=== PATIENT | male | born 1975 | race African-American/Black ===

== ENCOUNTER 2024-08-01 19:20 | Inpatient (IN) | payer OTHER, SELFPAY ==
[2024-08-01 20:43] VITALS: BMI 32.5
[2024-08-02] MEDS: Thiamine HCL 100 MG TABLET PO ×2 (00:05→09:26)
--- NOTE | 2024-08-02 04:17 | PC.ADMIT ---
Addendum entered by Christal Lee RN 08/02/24 05:42: According to the patient, he has not taken any home medications for at least two months. Original Note: River Ferraro is a 49 year old Pashto speaking male admitted to at 1940 on a CV and placed on 15 minute safety checks. Patient was initially seen in the [facility] ED after he admitted to people at an meeting his recent relapse on alcohol, crack and marijuana and suicidal thinking and attempts. Patient has a history of depression with substance use and suicide attempts, and patient reported to crisis that he has had three suicide attempts this last week, 1) attempt to overdose by shooting up crack, 2) taking Klonodone and 3) laying on the railroad tracks waiting for the train to come . Apparently he has been on a downward spiral since June 23, when he was 9 months of sobriety and relapsed while he was celebrating getting his new apartment. He also stole money from his job and left work. Patient is now worried about being without a job and being evicted from his apartment due to not paying [place] rent and allowing drug deals to happen at his residence. Patient was very pleasant and cooperative with his admission process, signed ANA, answered questions related to his history. He will need to do his safety tool, sign his belongings sheet and treatment plan. Patient rated both his depression and anxiety 10/10, he denied any alcohol withdrawals at the time of his admission. Patient denied any current SI, HI, VH. He did mention I hear mumbling but no voices . River said he feels safe on the unit and will alert staff if he is having active SI. HIs skin check was unremarkable, patient is a smoker but not interested in quitting. He did agree to see an addiction consult.
[2024-08-02 08:00] VITALS: BP 155/82; PULSE 71; RESP 18; TEMP 36.9; O2SAT 97
[2024-08-02 08:26] LABS: Estimated Average Glucose 140 mg/dL; Hemoglobin A1c % 6.5 % (<6.0)
[2024-08-02 08:36] LABS: Alanine Aminotransferase 11 U/L (0-40); Albumin Level 4.1 g/dL (3.5-5.0); Alkaline Phosphatase 68 U/L (39-117); Anion Gap 11 (12-20); Aspartate Amino Transferase 18 U/L (5-37); Bilirubin Total 0.2 mg/dL (0.0-1.0); Blood Urea Nitrogen 11 mg/dL (9-16); Calcium 9.3 mg/dL (8.4-10.2); Carbon Dioxide 30 mmol/L (22-29); Chloride 103 mmol/L (96-108); Cholesterol 167 mg/dL (<200); Creatinine Clr Calc Pharmacy 183.4; Estimated Glomerular Filt Rate > 60; Glucose Random 227 mg/dL (60-115); HDL Cholesterol 43 mg/dL (>40); LDL Cholesterol Calculated 106 mg/dL (<100); Sodium 140 mmol/L (135-145); Total Protein 7.2 g/dL (6.5-8.0); Triglycerides 90 mg/dL (<150)
[2024-08-02 08:50] LABS: Thyroid Stimulating Hormone 3.23 uIU/mL (0.32-4.0)
[2024-08-02] MEDS: LORazepam 1 MG TABLET 2 MG PO (09:25)
--- NOTE | 2024-08-02 09:58 | HO.PSYADMNOT ---
HPI Date of Service: 08/02/24 Chief Complaint: PTSD, Generalized anxiety disorder Sources of Information: patient interviewed, chart reviewed and crisis/core team assessment reviewed HPI Subjective Notes: [place] Warning and Conditional Voluntary Narrative: 49 yo male, transfer from [facility] for treatment of polysubstance use, depression, SI, homelessness. Reports he was working and had an apartment, however, his apartment was taken over at [employer], becoming a hub for substance distribution and crime. His landlord learned of this and is in process of eviction. As a result pt has attempted suicide three times this week by OD of crack, clonidine and lying on the train tracks waiting to be hit by an oncoming train. Reports decline for approximately 5 weeks. Has had 9 months of sobriety until June 2024. Recently resumed alcohol. AA peers took pt for help prior to admit. Today, detox is rough, pt hearing voices-using olanzapine, lorazepam. Brief meeting as he is sedate and wanting to rest Past Psychiatric History: IP: Affirms OP: none at this time SA: Several via OD Trials: Affirms Medical Evaluation Reviewed: Yes [facility] Medical History (Updated 08/02/24 @ 16:56 by Genny Louise, COMPLIANCE ASSISTANT) Polysubstance use disorder Alcohol use disorder Recurrent major depression PTSD (post-traumatic stress disorder) Narrative: Diabetes Social History: 18 yo daughter is a support Hx of incarcerations. 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 Substance History: cannabis, crack, cocaine,alcohol, prescription medication abuse Trauma History: affirms Diagnostics Vital Signs (24Hr): Vital Signs - 24 hr 08/02/24 08:00 Temperature 98.5 F Pulse Rate 71 Respiratory Rate 18 Blood Pressure 155/82 H Pulse Oximetry 97 Oxygen Delivery Method Room Air BMI result Body Mass Index 32.5 Labs 08/02/24 07:58 Labs: Laboratory Results - last 48 hr 08/02/24 07:58 Sodium 140 Potassium 4.0 Chloride 103 Carbon Dioxide 30 H Anion Gap 11 L BUN 11 Creatinine 0.70 Estim Creat Clear Calc 183.4 Estimated GFR > 60 Random Glucose 227 H Estimat Average Glucose 140 Hemoglobin A1c % 6.5 H Calcium 9.3 Total Bilirubin 0.2 AST 18 ALT 11 Alkaline Phosphatase 68 Total Protein 7.2 Albumin 4.1 Triglycerides 90 Cholesterol 167 LDL Cholesterol, Calc 106 H HDL Cholesterol 43 TSH 3.23 WBC 11.4 Mg. 1.5 Tox + cocaine, + cannabis BAL 31 EKG EKG Comment: NSR QTC 450 Meds/Allergies Allergies Allergies Allergy/AdvReac Type Severity Reaction Status Date / Time fish derived [fish] Allergy Difficulty Verified 08/01/24 20:58 Breathing gabapentin Allergy Difficulty Verified 08/01/24 20:58 Breathing shellfish derived [shellfish] Allergy Difficulty Verified 08/01/24 20:58 Breathing Mental Status Exam Mental Status Exam Patient Appearance: Fatigued Patient Orientation: Person, Place and Situation Level of Consciousness: Drowsy and Sedated Patient Behavior: Asleep, Sedated, Avoidant and Poor Eye Contact Mood Description: Withdrawn Affect Description: Withdrawn Patient Cognition Impaired: No Ability to Follow Directions: Fair Speech Pattern: Impoverished and Spontaneous Speech Memory Description: Remote Impaired Hallucinations: Auditory Delusions: Not Present Thought Process: Rumination Depressive Symptoms: Thoughts of /Suicide and Difficulty Concentrating Judgement: Poor Assessment & Plan Assessment & Plan (1) PTSD (post-traumatic stress disorder): Status: Acute Code(s): F43.10 - Post-traumatic stress disorder, unspecified (2) Recurrent major depression: Status: Acute Code(s): F33.9 - Major depressive disorder, recurrent, unspecified (3) Alcohol use disorder: Status: Acute Code(s): F10.90 - Alcohol use, unspecified, uncomplicated (4) Polysubstance use disorder: Status: Acute Code(s): F19.90 - Other psychoactive substance use, unspecified, uncomplicated Plan Admit, CV, 15 minute checks Diagnostics as needed Collateral Contacts Olanzapine prn Lorazepam detox Encourage milieu involvement as detox progresses Discharge planning Patient educated on: therapeutic strategies Reason for continued inpatient stay Substantial Risk for: rapid decompensation Statement Statement: I have reviewed the history and physical and performed a pertinent examination on my patient. No changes have occurred unless specified. If the History and Physical was not performed prior to admission, the Hospitalist's service will be consulted for completing the admission physical. Time Spent With Patient Time: Total time managing care of this patient today ____ minutes.
--- NOTE | 2024-08-02 11:28 | HO.PM.IMCN ---
History of Present Illness Data of Consult Service Date: 08/02/24 Primary Care Provider: VIOLET Lance HPI Reason for consult: Medical H and P 49-year-old male with a past medical history of type 2 diabetes, PTSD, depression and anxiety, presented to [facility] with suicidal ideation, patient has a history of several overdose attempts. On exam patient is guarded, asked this commercial underwriter if I am ?going to hurt him . Reassured patient that I was here to discuss his medical history inpatient is cooperative and agreeable with exam. He reports that he has type 2 diabetes, his recent A1c is 6.5. He takes Ozempic at home as well as metformin. He denies any other health conditions. His cholesterol is within acceptable range, TSH within normal limits no other concerns noted. He denies any shortness of breath, chest pain, headaches, dizziness, lightheadedness or any other concerning symptoms at this time. Does report that he on occasion he becomes dizzy and has headaches. His blood pressure is elevated. We will continue to monitor this, he denies a history of hypertension. Review of Systems Review of Systems: Denies any shortness of breath, chest pain, dizziness, lightheadedness, abdominal pain or discomfort, nausea vomiting or diarrhea PMFSH Social History Household Members: None Housing: Apartment Do you presently have visiting nurse or other home services: No Patient Tobacco Use Status: Current everyday Tobacco user Tobacco use type: Cigarette Cigarette Packs Per Day: 0.5 Cigarettes Per Day: 10.0 Years Smoked: 33 Smoked in Last 30 Days: Yes e-Cigarette/Vaping Use: Currently Using Frequency of e-Cigarette/Vaping Use: 3 x week Patient Given Instructions on How to Stop Smoking: Yes Date Education Initiated: 08/01/24 Second Hand Smoke Exposure: Yes Currently Displaying Signs/Symptoms of Drug Intoxication Withdrawal: No Have you been hit, kicked, punched, or otherwise hurt by someone within the past year? If so, by whom?: No Do you feel safe in your current relationship?: No Current Relationship Is there a partner from a previous relationship who is making you feel unsafe now?: No Are you made to feel afraid or neglected: No Spiritual Healthcare Practices: none Evangelical Healthcare Practices: none Cultural Healthcare Practices: none Advance Directives: No Advance Directives Information Provided: No Do you have thoughts of harming others: None Do you have a plan to hurt others: No Plan Recently lost weight without trying: Yes How much weight loss: 34pounds or more Eating poorly because of decreased appetite: Yes Nutrition screen score: 7 Nutrition Risks: No Nutritional Risk Poor oral hygiene: No Meds Allergies Allergy/AdvReac Type Severity Reaction Status Date / Time fish derived [fish] Allergy Difficulty Verified 08/01/24 20:58 Breathing gabapentin Allergy Difficulty Verified 08/01/24 20:58 Breathing shellfish derived [shellfish] Allergy Difficulty Verified 08/01/24 20:58 Breathing Active Medications: Current Medications Acetaminophen (Acetaminophen 325 Mg Tablet) 650 mg PO Q6H PRN PRN Reason: Headache/Pain, Scale 1-10 Al Hydroxide/Mg Hydroxide (Magnesium Hydrox/Alum Hydrox 30 Ml Oral.Susp) 30 ml PO Q6H PRN PRN Reason: Heartburn/Nausea Hydroxyzine HCl (Hydroxyzine Hcl 25 Mg Tablet) 25 mg PO Q6H PRN PRN Reason: mild anxiety Lorazepam (Lorazepam 1 Mg Tablet) 1 mg PO Q4H PRN PRN Reason: ciwa 7-12 Lorazepam (Lorazepam 1 Mg Tablet) 2 mg PO Q4H PRN PRN Reason: ciwa 13-16 Last Admin: 08/02/24 09:25 Dose: 2 mg Lorazepam (Lorazepam 1 Mg Tablet) 3 mg PO Q4H PRN PRN Reason: ciwa >17, call Magnesium Hydroxide (Milk Of Magnesia 30 Ml Oral.Susp) 30 ml PO DAILY PRN PRN Reason: Constipation Nicotine Polacrilex (Nicotine Polacrilex 2 Mg Gum) 2 mg BUCCAL Q2H PRN PRN Reason: Nicotine Cravings Thiamine HCl (Thiamine Hcl 100 Mg Tablet) 100 mg PO DAILY [facility] Last Admin: 08/02/24 09:26 Dose: 100 mg Trazodone HCl (Trazodone Hcl 50 Mg Tablet) 50 mg PO BEDTIME MRX1 PRN PRN Reason: Insomnia Physical Exam Vital Signs and Narrative: Vital Signs: Last Vital Signs Temp 98.5 F 08/02/24 08:00 Pulse 71 08/02/24 08:00 Resp 18 08/02/24 08:00 BP 155/82 H 08/02/24 08:00 Pulse Ox 97 08/02/24 08:00 O2 Del Method Room Air 08/02/24 08:00 BMI result Body Mass Index 32.5 Alert and oriented X3, able to give good history. Neuro: CN II-X11 intact, no deficits, visual acuity intact EYES: PERRLA, EOM intact ENT: Hearing intact, lips moist Cardiac: S1 S2 RRR, No ectopy Pulmonary: lungs clear to auscultation, No increased WOB. Abdominal: BS active in all 4 quadrants, no guarding or tenderness MSK: Strength 5/5 upper and lower extremities : Deferred Extremities: No edema in lower extremities Psych: mood stable, Quiet and cooperative. Guarded. Skin: Warm and dry, Intact Results Labs 08/02/24 07:58 Labs: Laboratory Results - last 24 hr 08/02/24 07:58 Anion Gap 11 L Estim Creat Clear Calc 183.4 Estimated GFR > 60 Random Glucose 227 H Estimat Average Glucose 140 Hemoglobin A1c % 6.5 H Calcium 9.3 Total Bilirubin 0.2 AST 18 ALT 11 Alkaline Phosphatase 68 Total Protein 7.2 Albumin 4.1 Triglycerides 90 Cholesterol 167 LDL Cholesterol, Calc 106 H HDL Cholesterol 43 TSH 3.23 Assessment and Plan (1) Non-insulin dependent type 2 diabetes mellitus: Status: Acute (2) HTN (hypertension): Qualifiers: Hypertension type: secondary to endocrine disorders Qualified Code(s): I15.2 - Hypertension secondary to endocrine disorders Status: Acute Plan PTSD/depression/anxiety/SI Treatment per psychiatric team Type 2 diabetes Patient reports that he previously took metformin as well as Ozempic. Has not had Ozempic for 2 months, we will resume as outpatient Recent A1c 6.5, random glucose elevated. Start metformin 500 mg extended release at supper Hypertension We will start lisinopril 2.5 mg daily Recheck labs in 1 week Follow blood pressures and adjust as needed Thank you for allowing me to participate in the care of this patient. Will follow as needed. Please reconsult of any acute complaints or issues arise
[2024-08-02] MEDS: OLANZapine ODT 10 MG TAB.RAPDIS TRANSLINGU (11:56)
[2024-08-02 11:59] LABS: Folate 8.4 ng/mL (> or = 4.0); Vitamin B12 418 pg/mL (200-900)
[2024-08-02] MEDS: LORazepam 1 MG TABLET 3 MG PO (12:02)
[2024-08-02 12:24] VITALS: BP 148/104; PULSE 82
[2024-08-02 17:29] VITALS: BP 129/77; PULSE 82; RESP 18; O2SAT 98
[2024-08-02 18:51] VITALS: BP 129/80
[2024-08-02] MEDS: metFORMIN HCl ER 500 MG TAB.ER.24H PO (18:51)
[2024-08-02] MEDS: lisinopriL 2.5 MG TABLET PO (18:51)
[2024-08-02 20:00] VITALS: BP 140/82; PULSE 88; TEMP 36.8; O2SAT 99
[2024-08-03 08:00] VITALS: BP 113/74; PULSE 73; RESP 16; TEMP 36.9; O2SAT 100
--- NOTE | 2024-08-03 09:47 | P.PNPSI_ITS ---
Subjective Subjective Date of Service: 08/03/24 Reason For Visit: PTSD, Generalized anxiety disorder Interim History: met with patient; discussed with team withdrawal continues; depressed and anxious; says AH intermittent, but only present when depressed, stressed or emotional; [facility] Mental Status Exam Mental Status Exam Patient Appearance: Fatigued Patient Orientation: Person, Place and Situation Level of Consciousness: Drowsy and Sedated Patient Behavior: Asleep, Sedated, Avoidant and Poor Eye Contact Mood Description: Withdrawn Affect Description: Withdrawn Patient Cognition Impaired: No Ability to Follow Directions: Fair Speech Pattern: Impoverished and Spontaneous Speech Memory Description: Remote Impaired Hallucinations: Auditory Delusions: Not Present Thought Process: Rumination Depressive Symptoms: Thoughts of /Suicide and Difficulty Concentrating Judgement and Insight: impaired Diagnostics Vital Signs (24Hr): Vital Signs - 24 hr 08/02/24 12:24 08/02/24 17:29 08/02/24 18:51 Temperature Pulse Rate 82 82 Respiratory Rate 18 Blood Pressure 148/104 H 129/77 129/80 Pulse Oximetry 98 Oxygen Delivery Method Room Air 08/02/24 20:00 08/03/24 08:00 Temperature 98.2 F 98.4 F Pulse Rate 88 73 Respiratory Rate 16 Blood Pressure 140/82 H 113/74 Pulse Oximetry 99 100 Oxygen Delivery Method Room Air Room Air BMI result Body Mass Index 32.5 Labs 08/02/24 07:58 Labs: Laboratory Results - last 48 hr 08/02/24 08/02/24 07:58 10:25 Sodium 140 Potassium 4.0 Chloride 103 Carbon Dioxide 30 H Anion Gap 11 L BUN 11 Creatinine 0.70 Estim Creat Clear Calc 183.4 Estimated GFR > 60 Random Glucose 227 H Estimat Average Glucose 140 Hemoglobin A1c % 6.5 H Calcium 9.3 Total Bilirubin 0.2 AST 18 ALT 11 Alkaline Phosphatase 68 Total Protein 7.2 Albumin 4.1 Triglycerides 90 Cholesterol 167 LDL Cholesterol, Calc 106 H HDL Cholesterol 43 Vitamin B12 418 Folate 8.4 TSH 3.23 Medications Medications Current Medications Acetaminophen (Acetaminophen 325 Mg Tablet) 650 mg PO Q6H PRN PRN Reason: Headache/Pain, Scale 1-10 Al Hydroxide/Mg Hydroxide (Magnesium Hydrox/Alum Hydrox 30 Ml Oral.Susp) 30 ml PO Q6H PRN PRN Reason: Heartburn/Nausea Folic Acid (Folic Acid 1 Mg Tablet) 1 mg PO DAILY [place] Hydroxyzine HCl (Hydroxyzine Hcl 25 Mg Tablet) 25 mg PO Q6H PRN PRN Reason: mild anxiety Lisinopril (Lisinopril 2.5 Mg Tablet) 2.5 mg PO DAILY [facility]; Protocol Last Admin: 08/02/24 18:51 Dose: 2.5 mg Lorazepam (Lorazepam 1 Mg Tablet) 1 mg PO Q4H PRN PRN Reason: ciwa 7-12 Lorazepam (Lorazepam 1 Mg Tablet) 2 mg PO Q4H PRN PRN Reason: ciwa 13-16 Last Admin: 08/02/24 09:25 Dose: 2 mg Lorazepam (Lorazepam 1 Mg Tablet) 3 mg PO Q4H PRN PRN Reason: ciwa >17, call Last Admin: 08/02/24 12:02 Dose: 3 mg Magnesium Hydroxide (Milk Of Magnesia 30 Ml Oral.Susp) 30 ml PO DAILY PRN PRN Reason: Constipation Metformin HCl (Metformin Hcl Er 500 Mg Tab.Er.24h) 500 mg PO DAILY@1800 [facility] Last Admin: 08/02/24 18:51 Dose: 500 mg Multivitamins/Vitamin C (Multivitamin Tablet) 1 tab PO DAILY [facility] Nicotine Polacrilex (Nicotine Polacrilex 2 Mg Gum) 2 mg BUCCAL Q2H PRN PRN Reason: Nicotine Cravings Olanzapine (Olanzapine 5 Mg Tablet) 5 mg PO Q4H PRN PRN Reason: psychosis, agitation Thiamine HCl (Thiamine Hcl 100 Mg Tablet) 100 mg PO DAILY [facility] Last Admin: 08/02/24 09:26 Dose: 100 mg Trazodone HCl (Trazodone Hcl 50 Mg Tablet) 50 mg PO BEDTIME MRX1 PRN PRN Reason: Insomnia Allergies Allergies Allergy/AdvReac Type Severity Reaction Status Date / Time fish derived [fish] Allergy Difficulty Verified 08/01/24 20:58 Breathing gabapentin Allergy Difficulty Verified 08/01/24 20:58 Breathing shellfish derived [shellfish] Allergy Difficulty Verified 08/01/24 20:58 Breathing Assessment & Plan Assessment & Plan (1) PTSD (post-traumatic stress disorder): Status: Acute Code(s): F43.10 - Post-traumatic stress disorder, unspecified (2) Recurrent major depression: Status: Acute Code(s): F33.9 - Major depressive disorder, recurrent, unspecified (3) Alcohol use disorder: Status: Acute Code(s): F10.90 - Alcohol use, unspecified, uncomplicated (4) Polysubstance use disorder: Status: Acute Code(s): F19.90 - Other psychoactive substance use, unspecified, uncomplicated Plan HPI: 49 yo male, transfer from [facility] for treatment of polysubstance use, depression, SI, homelessness. Reports he was working and had an apartment, however, his apartment was taken over at [employer], becoming a hub for substance distribution and crime. His landlord learned of this and is in process of eviction. As a result pt has attempted suicide three times this week by OD of crack, clonidine and lying on the train tracks waiting to be hit by an oncoming train. Reports decline for approximately 5 weeks. Has had 9 months of sobriety until June 2024. Recently resumed alcohol. AA peers took pt for help prior to admit. Today, detox is rough, pt hearing voices-using olanzapine, lorazepam. Brief meeting as he is sedate and wanting to rest Hospital course: remains depressed; complains of AH; withdrawal waning (CIWA 0,2,0,2) Admit, CV, 15 minute checks CIWA Diagnostics as needed Collateral Contacts Olanzapine prn Lorazepam detox Encourage milieu involvement as detox progresses Discharge planning Patient educated on: diagnosis, medication risk/benefits and substance abuse Informed Consent: understands Reason for continued inpatient stay Substantial Risk for: rapid decompensation Time Spent With Patient Time: Total time managing care of this patient today ____ minutes.
[2024-08-03 11:34] VITALS: BP 133/84
[2024-08-03] MEDS: Thiamine HCL 100 MG TABLET PO (11:34)
[2024-08-03] MEDS: Folic Acid 1 MG TABLET PO (11:34)
[2024-08-03] MEDS: lisinopriL 2.5 MG TABLET PO (11:34)
[2024-08-03] MEDS: Multivitamin TABLET 1 TAB PO (11:34)
[2024-08-03] MEDS: hydrOXYzine HCL 25 MG TABLET PO ×2 (12:37→20:33)
[2024-08-03] MEDS: Nicotine 14 MG PATCH.TD24 TRANSDERMA (14:13)
[2024-08-03] MEDS: metFORMIN HCl ER 500 MG TAB.ER.24H PO (18:34)
[2024-08-03 20:00] VITALS: BP 129/87; PULSE 101; TEMP 36.6; O2SAT 98
[2024-08-03] MEDS: Acetaminophen 325 MG TABLET 650 MG PO (20:33)
[2024-08-03] MEDS: OLANZapine 5 MG TABLET PO (20:33)
[2024-08-04 07:00] VITALS: BMI 34.1
[2024-08-04 08:19] VITALS: BP 139/63; PULSE 86; RESP 16; TEMP 36.5; O2SAT 98
[2024-08-04] MEDS: Multivitamin TABLET 1 TAB PO (09:08)
[2024-08-04] MEDS: Thiamine HCL 100 MG TABLET PO (09:08)
[2024-08-04] MEDS: Folic Acid 1 MG TABLET PO (09:08)
[2024-08-04] MEDS: lisinopriL 2.5 MG TABLET PO (09:08)
[2024-08-04] MEDS: Sertraline HCL 25 MG TABLET PO (09:08)
--- NOTE | 2024-08-04 09:30 | HO.PSYCHPN ---
Subjective Subjective Date of Service: 08/04/24 Reason For Visit: PTSD, Generalized anxiety disorder Subjective Notes: Conditional Voluntary Healthcare Proxy: No Guardianship: No Medical Problems Affecting Mental Status: No Interim History: Pt continues with thoughts of self harm, increased with unit construction, however, able to contract for his safety today. He has agreed with team to trial CSS referrals and is tolerating Sertraline re-trial thus far. Medication Compliance: Yes Side effects from medications: No Attending Groups: Intermittent Review of Systems Acute medical concerns: No Review of Systems Review of Systems Yes all other systems are reviewed and are negative Mental Status Exam Mental Status Exam Patient Appearance: Appropriate Patient Orientation: Person, Place, Time and Situation Level of Consciousness: Alert Patient Behavior: Appropriate, Talkative, Cooperative and Good Eye Contact Mood Description: Depressed Affect Description: Flat Patient Cognition Impaired: No Ability to Follow Directions: Good Speech Pattern: Spontaneous Speech Memory Description: Intact Hallucinations: Auditory (sounds) and Visual (shadows) Delusions: Not Present Thought Process: Rumination Thought Content: positive for Circumstantial, positive for Perseveration and positive for Suicidal Ideation Depressive Symptoms: Increased Fatigue and Thoughts of /Suicide Judgement: Fair Diagnostics Vital Signs (24Hr): Vital Signs - 24 hr 08/03/24 11:34 08/03/24 20:00 08/04/24 08:19 Temperature 97.8 F 97.7 F Pulse Rate 101 H 86 Respiratory Rate 16 Blood Pressure 133/84 129/87 139/63 Pulse Oximetry 98 98 Oxygen Delivery Method Room Air Room Air BMI result Body Mass Index 32.5 Labs 08/02/24 07:58 Labs: Laboratory Results - last 48 hr 08/02/24 10:25 Vitamin B12 418 Folate 8.4 Medications Medications Current Medications Acetaminophen (Acetaminophen 325 Mg Tablet) 650 mg PO Q6H PRN PRN Reason: Headache/Pain, Scale 1-10 Last Admin: 08/03/24 20:33 Dose: 650 mg Al Hydroxide/Mg Hydroxide (Magnesium Hydrox/Alum Hydrox 30 Ml Oral.Susp) 30 ml PO Q6H PRN PRN Reason: Heartburn/Nausea Folic Acid (Folic Acid 1 Mg Tablet) 1 mg PO DAILY [place] Last Admin: 08/04/24 09:08 Dose: 1 mg Hydroxyzine HCl (Hydroxyzine Hcl 25 Mg Tablet) 25 mg PO Q6H PRN PRN Reason: mild anxiety Last Admin: 08/03/24 20:33 Dose: 25 mg Lisinopril (Lisinopril 2.5 Mg Tablet) 2.5 mg PO DAILY [facility]; Protocol Last Admin: 08/04/24 09:08 Dose: 2.5 mg Lorazepam (Lorazepam 1 Mg Tablet) 1 mg PO Q4H PRN PRN Reason: ciwa 7-12 Lorazepam (Lorazepam 1 Mg Tablet) 2 mg PO Q4H PRN PRN Reason: ciwa 13-16 Last Admin: 08/02/24 09:25 Dose: 2 mg Lorazepam (Lorazepam 1 Mg Tablet) 3 mg PO Q4H PRN PRN Reason: ciwa >17, call Last Admin: 08/02/24 12:02 Dose: 3 mg Magnesium Hydroxide (Milk Of Magnesia 30 Ml Oral.Susp) 30 ml PO DAILY PRN PRN Reason: Constipation Metformin HCl (Metformin Hcl Er 500 Mg Tab.Er.24h) 500 mg PO DAILY@1800 [facility] Last Admin: 08/03/24 18:34 Dose: 500 mg Multivitamins/Vitamin C (Multivitamin Tablet) 1 tab PO DAILY [facility] Last Admin: 08/04/24 09:08 Dose: 1 tab Nicotine (Nicotine 14 Mg Patch.Td24) 14 mg TRANSDERMA DAILY PRN PRN Reason: smoking cessation Last Admin: 08/03/24 14:13 Dose: 14 mg Nicotine Polacrilex (Nicotine Polacrilex 2 Mg Gum) 2 mg BUCCAL Q2H PRN PRN Reason: Nicotine Cravings Olanzapine (Olanzapine 5 Mg Tablet) 5 mg PO Q4H PRN PRN Reason: psychosis, agitation Last Admin: 08/03/24 20:33 Dose: 5 mg Sertraline HCl (Sertraline Hcl 25 Mg Tablet) 25 mg PO DAILY [facility] Last Admin: 08/04/24 09:08 Dose: 25 mg Thiamine HCl (Thiamine Hcl 100 Mg Tablet) 100 mg PO DAILY [facility] Last Admin: 08/04/24 09:08 Dose: 100 mg Trazodone HCl (Trazodone Hcl 50 Mg Tablet) 50 mg PO BEDTIME MRX1 PRN PRN Reason: Insomnia Allergies Allergies Allergy/AdvReac Type Severity Reaction Status Date / Time fish derived [fish] Allergy Difficulty Verified 08/01/24 20:58 Breathing gabapentin Allergy Difficulty Verified 08/01/24 20:58 Breathing shellfish derived [shellfish] Allergy Difficulty Verified 08/01/24 20:58 Breathing Assessment & Plan Assessment & Plan (1) PTSD (post-traumatic stress disorder): Status: Acute Code(s): F43.10 - Post-traumatic stress disorder, unspecified (2) Recurrent major depression: Status: Acute Code(s): F33.9 - Major depressive disorder, recurrent, unspecified (3) Alcohol use disorder: Status: Acute Code(s): F10.90 - Alcohol use, unspecified, uncomplicated (4) Polysubstance use disorder: Status: Acute Code(s): F19.90 - Other psychoactive substance use, unspecified, uncomplicated Plan HPI: 49 yo male, transfer from [facility] for treatment of polysubstance use, depression, SI, homelessness. Reports he was working and had an apartment, however, his apartment was taken over at [facility], becoming a hub for substance distribution and crime. His landlord learned of this and is in process of eviction. As a result pt has attempted suicide three times this week by OD of crack, clonidine and lying on the train tracks waiting to be hit by an oncoming train. Reports decline for approximately 5 weeks. Has had 9 months of sobriety until June 2024. Recently resumed alcohol. AA peers took pt for help prior to admit. Today, detox is rough, pt hearing voices-using olanzapine, lorazepam. Brief meeting as he is sedate and wanting to rest. 08/04: Continue plan. Hospital course: remains depressed; complains of AH; withdrawal waning (CIWA 0,2,0,2) Admit, CV, 15 minute checks CIWA Diagnostics as needed Collateral Contacts Olanzapine prn Lorazepam detox Encourage milieu involvement as detox progresses Discharge planning Reason for continued inpatient stay Substantial Risk for: rapid decompensation Time Spent With Patient Time: Total time managing care of this patient today ____ minutes.
--- NOTE | 2024-08-04 12:17 | HO.PSYCHPN ---
Subjective Subjective Date of Service: 08/04/24 Reason For Visit: PTSD, Generalized anxiety disorder Subjective Notes: Conditional Voluntary Healthcare Proxy: No Guardianship: No Medical Problems Affecting Mental Status: No Interim History: Patient states that he is ?not good,? and that he has been feeling down a lot today. He has been taking his medications as prescribed. Sertraline was started today. He denies alcohol withdrawal symptoms at this time. He endorses SI without a plan. He denies HI, AH, and VH. Medication Compliance: Yes Side effects from medications: No Attending Groups: Intermittent Review of Systems Acute medical concerns: No Mental Status Exam Mental Status Exam Narrative: Appearance: Casually dressed Behavior: Calm and cooperative throughout the interview. Eye contact is appropriate, and there are no signs of psychomotor agitation or retardation Speech: Normal volume and prosody Thought process: logical and goal-directed Thought content: self-harming thoughts Mood: Not good Affect: constricted SI: reports HI:denies VH/AH:none Delusions: None Insight/judgment: Impaired insight and judgment Memory/cog: Alert, oriented x 4. grossly intact to conversational testing Diagnostics Vital Signs (24Hr): Vital Signs - 24 hr 08/03/24 20:00 08/04/24 08:19 Temperature 97.8 F 97.7 F Pulse Rate 101 H 86 Respiratory Rate 16 Blood Pressure 129/87 139/63 Pulse Oximetry 98 98 Oxygen Delivery Method Room Air Room Air BMI result Body Mass Index 34.1 Labs 08/02/24 07:58 Medications Medications Current Medications Acetaminophen (Acetaminophen 325 Mg Tablet) 650 mg PO Q6H PRN PRN Reason: Headache/Pain, Scale 1-10 Last Admin: 08/03/24 20:33 Dose: 650 mg Al Hydroxide/Mg Hydroxide (Magnesium Hydrox/Alum Hydrox 30 Ml Oral.Susp) 30 ml PO Q6H PRN PRN Reason: Heartburn/Nausea Folic Acid (Folic Acid 1 Mg Tablet) 1 mg PO DAILY [place] Last Admin: 08/04/24 09:08 Dose: 1 mg Hydroxyzine HCl (Hydroxyzine Hcl 25 Mg Tablet) 25 mg PO Q6H PRN PRN Reason: mild anxiety Last Admin: 08/03/24 20:33 Dose: 25 mg Lisinopril (Lisinopril 2.5 Mg Tablet) 2.5 mg PO DAILY [place]; Protocol Last Admin: 08/04/24 09:08 Dose: 2.5 mg Lorazepam (Lorazepam 1 Mg Tablet) 1 mg PO Q4H PRN PRN Reason: ciwa 7-12 Lorazepam (Lorazepam 1 Mg Tablet) 2 mg PO Q4H PRN PRN Reason: ciwa 13-16 Last Admin: 08/02/24 09:25 Dose: 2 mg Lorazepam (Lorazepam 1 Mg Tablet) 3 mg PO Q4H PRN PRN Reason: ciwa >17, call Last Admin: 08/02/24 12:02 Dose: 3 mg Magnesium Hydroxide (Milk Of Magnesia 30 Ml Oral.Susp) 30 ml PO DAILY PRN PRN Reason: Constipation Metformin HCl (Metformin Hcl Er 500 Mg Tab.Er.24h) 500 mg PO DAILY@1800 [facility] Last Admin: 08/03/24 18:34 Dose: 500 mg Multivitamins/Vitamin C (Multivitamin Tablet) 1 tab PO DAILY [facility] Last Admin: 08/04/24 09:08 Dose: 1 tab Nicotine (Nicotine 14 Mg Patch.Td24) 14 mg TRANSDERMA DAILY PRN PRN Reason: smoking cessation Last Admin: 08/03/24 14:13 Dose: 14 mg Nicotine Polacrilex (Nicotine Polacrilex 2 Mg Gum) 2 mg BUCCAL Q2H PRN PRN Reason: Nicotine Cravings Olanzapine (Olanzapine 5 Mg Tablet) 5 mg PO Q4H PRN PRN Reason: psychosis, agitation Last Admin: 08/03/24 20:33 Dose: 5 mg Sertraline HCl (Sertraline Hcl 25 Mg Tablet) 25 mg PO DAILY [facility] Last Admin: 08/04/24 09:08 Dose: 25 mg Thiamine HCl (Thiamine Hcl 100 Mg Tablet) 100 mg PO DAILY [facility] Last Admin: 08/04/24 09:08 Dose: 100 mg Trazodone HCl (Trazodone Hcl 50 Mg Tablet) 50 mg PO BEDTIME MRX1 PRN PRN Reason: Insomnia Allergies Allergies Allergy/AdvReac Type Severity Reaction Status Date / Time fish derived [fish] Allergy Difficulty Verified 08/01/24 20:58 Breathing gabapentin Allergy Difficulty Verified 08/01/24 20:58 Breathing shellfish derived [shellfish] Allergy Difficulty Verified 08/01/24 20:58 Breathing Assessment & Plan Assessment & Plan (1) PTSD (post-traumatic stress disorder): Status: Acute Code(s): F43.10 - Post-traumatic stress disorder, unspecified (2) Recurrent major depression: Status: Acute Code(s): F33.9 - Major depressive disorder, recurrent, unspecified (3) Alcohol use disorder: Status: Acute Code(s): F10.90 - Alcohol use, unspecified, uncomplicated (4) Polysubstance use disorder: Status: Acute Code(s): F19.90 - Other psychoactive substance use, unspecified, uncomplicated Plan HPI: 49 yo male, transfer from [facility] for treatment of polysubstance use, depression, SI, homelessness. Reports he was working and had an apartment, however, his apartment was taken over at [facility], becoming a hub for substance distribution and crime. His landlord learned of this and is in process of eviction. As a result pt has attempted suicide three times this week by OD of crack, clonidine and lying on the train tracks waiting to be hit by an oncoming train. Reports decline for approximately 5 weeks. Has had 9 months of sobriety until June 2024. Recently resumed alcohol. AA peers took pt for help prior to admit. Today, detox is rough, pt hearing voices-using olanzapine, lorazepam. Brief meeting as he is sedate and wanting to rest Hospital course: remains depressed; complains of AH; withdrawal waning (CIWA 0,2,0,2) 08/04: Patient states that he is ?not good,? and that he has been feeling down a lot today. He has been taking his medications as prescribed. Sertraline was started today. He denies alcohol withdrawal symptoms at this time (CIWA 1,1,1). He endorses SI without a plan. He denies HI, AH, and VH. Continue current treatment regimen. Sertraline will be adjusted as needed. Verbalized understanding and agreed with the plan. Admit, CV, 15 minute checks CIWA Diagnostics as needed Collateral Contacts Olanzapine prn Lorazepam detox Encourage milieu involvement as detox progresses Discharge planning Patient educated on: medication risk/benefits and therapeutic strategies Reason for continued inpatient stay Substantial Risk for: harm to self and rapid decompensation Time Spent With Patient Time: Total time managing care of this patient today ____ minutes.
[2024-08-04] MEDS: Nicotine 14 MG PATCH.TD24 TRANSDERMA (17:55)
[2024-08-04] MEDS: metFORMIN HCl ER 500 MG TAB.ER.24H PO (17:55)
[2024-08-04 20:00] VITALS: BP 139/82; PULSE 94; RESP 16; TEMP 36.8; O2SAT 98
[2024-08-04] MEDS: LORazepam 1 MG TABLET 2 MG PO (21:18)
[2024-08-05 08:00] VITALS: BP 125/60; PULSE 66; RESP 16; TEMP 36.4; O2SAT 98
[2024-08-05 08:43] VITALS: BP 132/87
[2024-08-05] MEDS: Multivitamin TABLET 1 TAB PO (08:43)
[2024-08-05] MEDS: Thiamine HCL 100 MG TABLET PO (08:43)
[2024-08-05] MEDS: Sertraline HCL 25 MG TABLET PO (08:43)
[2024-08-05] MEDS: Folic Acid 1 MG TABLET PO (08:43)
[2024-08-05] MEDS: lisinopriL 2.5 MG TABLET PO (08:43)
--- NOTE | 2024-08-05 09:36 | P.PNPSI_ITS ---
Subjective Subjective Date of Service: 08/05/24 Reason For Visit: PTSD, Generalized anxiety disorder Subjective Notes: Conditional Voluntary Healthcare Proxy: No Guardianship: No Medical Problems Affecting Mental Status: No Interim History: Team report pt has become over involved with a peer. Team discussed this with him with positive outcomes however we will continue to monitor. Continues to participate in applications for CSS programs. Initiated naltrexone and topiramate today Discussed still having thoughts of suicide-thinking about using construction tools on the unit, also of self harm. Continues to see shadows and sounds as well. However, reports gradual improvement overall. Medication Compliance: Yes Side effects from medications: No Attending Groups: Intermittent Review of Systems Acute medical concerns: No Medical Review of Systems: unchanged Review of Systems Review of Systems Denies Mental Status Exam Mental Status Exam Patient Appearance: Appropriate Patient Orientation: Person, Place, Time and Situation Level of Consciousness: Alert Patient Behavior: Talkative and Good Eye Contact Mood Description: Depressed Affect Description: Flat Patient Cognition Impaired: No Ability to Follow Directions: Good Speech Pattern: Spontaneous Speech Memory Description: Intact Hallucinations: Auditory and Visual Perceptual Disturbances: Depersonalization and Derealization Thought Process: Rumination Thought Content: positive for Perseveration and positive for Suicidal Ideation Depressive Symptoms: Thoughts of /Suicide Judgement: Fair Diagnostics Vital Signs (24Hr): Vital Signs - 24 hr 08/04/24 20:00 08/05/24 08:43 Temperature 98.2 F Pulse Rate 94 Respiratory Rate 16 Blood Pressure 139/82 132/87 Pulse Oximetry 98 Oxygen Delivery Method Room Air BMI result Body Mass Index 34.1 Labs 08/02/24 07:58 Medications Medications Current Medications Acetaminophen (Acetaminophen 325 Mg Tablet) 650 mg PO Q6H PRN PRN Reason: Headache/Pain, Scale 1-10 Last Admin: 08/03/24 20:33 Dose: 650 mg Al Hydroxide/Mg Hydroxide (Magnesium Hydrox/Alum Hydrox 30 Ml Oral.Susp) 30 ml PO Q6H PRN PRN Reason: Heartburn/Nausea Folic Acid (Folic Acid 1 Mg Tablet) 1 mg PO DAILY [place] Last Admin: 08/05/24 08:43 Dose: 1 mg Hydroxyzine HCl (Hydroxyzine Hcl 25 Mg Tablet) 25 mg PO Q6H PRN PRN Reason: mild anxiety Last Admin: 08/03/24 20:33 Dose: 25 mg Lisinopril (Lisinopril 2.5 Mg Tablet) 2.5 mg PO DAILY [facility]; Protocol Last Admin: 08/05/24 08:43 Dose: 2.5 mg Magnesium Hydroxide (Milk Of Magnesia 30 Ml Oral.Susp) 30 ml PO DAILY PRN PRN Reason: Constipation Metformin HCl (Metformin Hcl Er 500 Mg Tab.Er.24h) 500 mg PO DAILY@1800 [facility] Last Admin: 08/04/24 17:55 Dose: 500 mg Multivitamins/Vitamin C (Multivitamin Tablet) 1 tab PO DAILY [facility] Last Admin: 08/05/24 08:43 Dose: 1 tab Nicotine (Nicotine 14 Mg Patch.Td24) 14 mg TRANSDERMA DAILY PRN PRN Reason: smoking cessation Last Admin: 08/04/24 17:55 Dose: 14 mg Nicotine Polacrilex (Nicotine Polacrilex 2 Mg Gum) 2 mg BUCCAL Q2H PRN PRN Reason: Nicotine Cravings Olanzapine (Olanzapine 5 Mg Tablet) 5 mg PO Q4H PRN PRN Reason: psychosis, agitation Last Admin: 08/03/24 20:33 Dose: 5 mg Sertraline HCl (Sertraline Hcl 25 Mg Tablet) 25 mg PO DAILY [facility] Last Admin: 08/05/24 08:43 Dose: 25 mg Thiamine HCl (Thiamine Hcl 100 Mg Tablet) 100 mg PO DAILY [facility] Last Admin: 08/05/24 08:43 Dose: 100 mg Trazodone HCl (Trazodone Hcl 50 Mg Tablet) 50 mg PO BEDTIME MRX1 PRN PRN Reason: Insomnia Allergies Allergies Allergy/AdvReac Type Severity Reaction Status Date / Time fish derived [fish] Allergy Difficulty Verified 08/01/24 20:58 Breathing gabapentin Allergy Difficulty Verified 08/01/24 20:58 Breathing shellfish derived [shellfish] Allergy Difficulty Verified 08/01/24 20:58 Breathing Assessment & Plan Assessment & Plan (1) PTSD (post-traumatic stress disorder): Status: Acute Code(s): F43.10 - Post-traumatic stress disorder, unspecified (2) Recurrent major depression: Status: Acute Code(s): F33.9 - Major depressive disorder, recurrent, unspecified (3) Alcohol use disorder: Status: Acute Code(s): F10.90 - Alcohol use, unspecified, uncomplicated (4) Polysubstance use disorder: Status: Acute Code(s): F19.90 - Other psychoactive substance use, unspecified, uncomplicated Plan HPI: 49 yo male, transfer from [facility] for treatment of polysubstance use, depression, SI, homelessness. Reports he was working and had an apartment, however, his apartment was taken over at [facility], becoming a hub for substance distribution and crime. His landlord learned of this and is in process of eviction. As a result pt has attempted suicide three times this week by OD of crack, clonidine and lying on the train tracks waiting to be hit by an oncoming train. Reports decline for approximately 5 weeks. Has had 9 months of sobriety until June 2024. Recently resumed alcohol. AA peers took pt for help prior to admit. Today, detox is rough, pt hearing voices-using olanzapine, lorazepam. Brief meeting as he is sedate and wanting to rest Hospital course: remains depressed; complains of AH; withdrawal waning (CIWA 0,2,0,2) 08/04: Patient states that he is ?not good,? and that he has been feeling down a lot today. He has been taking his medications as prescribed. Sertraline was started today. He denies alcohol withdrawal symptoms at this time (CIWA 1,1,1). He endorses SI without a plan. He denies HI, AH, and VH. Continue current treatment regimen. Sertraline will be adjusted as needed. Verbalized understanding and agreed with the plan. 08/05: Pt will begin Naltrexone today DC CIWA, Lorazepam Topiramate 25 mg bid Admit, CV, 15 minute checks CIWA Diagnostics as needed Collateral Contacts Olanzapine prn Lorazepam detox Encourage milieu involvement as detox progresses Discharge planning Patient educated on: medication risk/benefits Informed Consent: understands Reason for continued inpatient stay Substantial Risk for: rapid decompensation Time Spent With Patient Time: Total time managing care of this patient today ____ minutes.
--- NOTE | 2024-08-05 11:52 | MHC.RECOVRN ---
Met with pt in to discuss ongoing substance use, recovery supports, and other resources. Discussed how cocaine and alcohol use has negatively impacted his life, affecting both his mental and physical wellbeing. Written materials on harm reduction, recovery coaching, CSS, TSS, and IOP programs provided and reviewed with patient. Pt declined outpatient [facility] appointment for treatment of his cocaine use disorder. Pt did accept to discuss with Addiction Medicine provider Shabana Pham about MAT initiation for his [facility]. Pt provided with Recovery Support Team contact information if questions or concerns arise. Denies any other questions or concerns at this time. Discussed with Cassi Pham NP.
[2024-08-05] MEDS: metFORMIN HCl ER 500 MG TAB.ER.24H PO (17:11)
[2024-08-05 19:54] VITALS: BP 135/84; PULSE 90; TEMP 37.6; O2SAT 96
--- NOTE | 2024-08-05 21:10 | HO.ADDICT_ITS ---
History of Present Illness Date of Service: 08/05/2024 Chief Complaint: PTSD, Generalized anxiety disorder Reason for Consult: AUD Sources of Information: patient interviewed and chart reviewed HPI Narrative: Patient is a 49 year old Black male admitted to unit with suicidal ideation. Consult requested due to patient's recent recurrence of use --cocaine and alcohol following 9 months in recovery Seen by mounting machine operator earlier, and expressed desire to restart SAADIA. Patient seen on M5. He is engaged in interview, blunted affect. States he is very familiar with vivtrol as he received it for some time. Last injection over a year ago. He has no questions about resuming PO naltrexone. Alcohol withdrawal sx, much improved and essentially resolved. Also discussed cocaine use--he states he uses IN, with the exception of one time IV use prior to admission when he states he used IV with the goal of having my heart explode . He reports he has taken medication for cocaine use in the past, but can not recall the name. He is open to trial of new medication for this. Past Psychiatric History: IP: Affirms OP: none at this time SA: Several via OD Trials: Affirms Review of Systems Constitutional: Reports as per HPI and Reports no additional constitutional complaints Diagnostics Vital Signs (24Hr): Vital Signs - 24 hr 08/05/24 08:00 08/05/24 08:43 08/05/24 19:54 Temperature 97.5 F 99.6 F Pulse Rate 66 90 Respiratory Rate 16 Blood Pressure 125/60 132/87 135/84 Pulse Oximetry 98 96 Oxygen Delivery Method Room Air Room Air BMI result Body Mass Index 34.1 Labs 08/02/24 07:58 Mental Status Exam Mental Status Exam Level of Consciousness: Awake, Appropriate and Alert Patient Behavior: Appropriate and Cooperative Affect Description: Flat Speech Pattern: Clear Thought Process: Intact Thought Content: positive for Intact Judgement: Good Medications Medications Current Medications Acetaminophen (Acetaminophen 325 Mg Tablet) 650 mg PO Q6H PRN PRN Reason: Headache/Pain, Scale 1-10 Last Admin: 08/03/24 20:33 Dose: 650 mg Al Hydroxide/Mg Hydroxide (Magnesium Hydrox/Alum Hydrox 30 Ml Oral.Susp) 30 ml PO Q6H PRN PRN Reason: Heartburn/Nausea Folic Acid (Folic Acid 1 Mg Tablet) 1 mg PO DAILY [facility] Last Admin: 08/05/24 08:43 Dose: 1 mg Hydroxyzine HCl (Hydroxyzine Hcl 25 Mg Tablet) 25 mg PO Q6H PRN PRN Reason: mild anxiety Last Admin: 08/03/24 20:33 Dose: 25 mg Lisinopril (Lisinopril 2.5 Mg Tablet) 2.5 mg PO DAILY [facility]; Protocol Last Admin: 08/05/24 08:43 Dose: 2.5 mg Magnesium Hydroxide (Milk Of Magnesia 30 Ml Oral.Susp) 30 ml PO DAILY PRN PRN Reason: Constipation Metformin HCl (Metformin Hcl Er 500 Mg Tab.Er.24h) 500 mg PO DAILY@1800 [facility] Last Admin: 08/05/24 17:11 Dose: 500 mg Multivitamins/Vitamin C (Multivitamin Tablet) 1 tab PO DAILY [facility] Last Admin: 08/05/24 08:43 Dose: 1 tab Naltrexone HCl (Naltrexone Hcl 50 Mg Tablet) 25 mg PO DAILY [facility] Stop: 08/08/24 09:01 Naltrexone HCl (Naltrexone Hcl 50 Mg Tablet) 50 mg PO DAILY [facility] Nicotine (Nicotine 14 Mg Patch.Td24) 14 mg TRANSDERMA DAILY PRN PRN Reason: smoking cessation Last Admin: 08/04/24 17:55 Dose: 14 mg Nicotine Polacrilex (Nicotine Polacrilex 2 Mg Gum) 2 mg BUCCAL Q2H PRN PRN Reason: Nicotine Cravings Olanzapine (Olanzapine 5 Mg Tablet) 5 mg PO Q4H PRN PRN Reason: psychosis, agitation Last Admin: 08/03/24 20:33 Dose: 5 mg Sertraline HCl (Sertraline Hcl 50 Mg Tablet) 50 mg PO DAILY [facility] Thiamine HCl (Thiamine Hcl 100 Mg Tablet) 100 mg PO DAILY [facility] Last Admin: 08/05/24 08:43 Dose: 100 mg Topiramate (Topiramate 25 Mg Tablet) 25 mg PO BID [facility] Trazodone HCl (Trazodone Hcl 50 Mg Tablet) 50 mg PO BEDTIME MRX1 PRN PRN Reason: Insomnia Allergies Allergies Allergy/AdvReac Type Severity Reaction Status Date / Time fish derived [fish] Allergy Difficulty Verified 08/01/24 20:58 Breathing gabapentin Allergy Difficulty Verified 08/01/24 20:58 Breathing shellfish derived [shellfish] Allergy Difficulty Verified 08/01/24 20:58 Breathing Assessment & Plan Assessment & Plan (1) Alcohol use disorder: Status: Acute Code(s): F10.90 - Alcohol use, unspecified, uncomplicated Assessment and Plan: * restart naltrexone 25mg x3 days then increase to 50mg QD (2) Cocaine use disorder: Status: Acute Code(s): F14.10 - Cocaine abuse, uncomplicated Assessment and Plan: * topirimate 25mg BID for 5 days, then increase to 50mg BID Total time managing care of this patient today ____ minutes. PMFSH Past Medical History Medical History (Updated 08/05/24 @ 21:32 by Shabana Pham CNP) Polysubstance use disorder Alcohol use disorder Recurrent major depression PTSD (post-traumatic stress disorder) Social History Social History Household Members: None Housing: Apartment Do you presently have visiting nurse or other home services: No Patient Tobacco Use Status: Current everyday Tobacco user Tobacco use type: Cigarette Cigarette Packs Per Day: 0.5 Cigarettes Per Day: 10.0 Years Smoked: 33 Smoked in Last 30 Days: Yes e-Cigarette/Vaping Use: Currently Using Frequency of e-Cigarette/Vaping Use: 3 x week Patient Given Instructions on How to Stop Smoking: Yes Date Education Initiated: 08/01/24 Second Hand Smoke Exposure: Yes Currently Displaying Signs/Symptoms of Drug Intoxication Withdrawal: No Have you been hit, kicked, punched, or otherwise hurt by someone within the past year? If so, by whom?: No Do you feel safe in your current relationship?: No Current Relationship Is there a partner from a previous relationship who is making you feel unsafe now?: No Are you made to feel afraid or neglected: No Spiritual Healthcare Practices: none Synagogue Healthcare Practices: none Cultural Healthcare Practices: none Advance Directives: No Advance Directives Information Provided: No Do you have thoughts of harming others: None Do you have a plan to hurt others: No Plan Recently lost weight without trying: Yes How much weight loss: 34pounds or more Eating poorly because of decreased appetite: Yes Nutrition screen score: 7 Nutrition Risks: No Nutritional Risk Poor oral hygiene: No service: No Sexual orientation: Straight/Heterosexual
[2024-08-05] MEDS: Topiramate 25 MG TABLET PO (21:27)
[2024-08-06] MEDS: traZODone HCL 50 MG TABLET PO (00:10)
[2024-08-06] MEDS: hydrOXYzine HCL 25 MG TABLET PO ×2 (00:10→16:41)
[2024-08-06 08:35] VITALS: BP 129/66; PULSE 77; RESP 16; TEMP 36.5; O2SAT 98
[2024-08-06] MEDS: Naltrexone HCl 50 MG TABLET 25 MG PO (08:49)
[2024-08-06] MEDS: lisinopriL 2.5 MG TABLET PO (08:50)
[2024-08-06] MEDS: Thiamine HCL 100 MG TABLET PO (08:50)
[2024-08-06] MEDS: Multivitamin TABLET 1 TAB PO (08:50)
[2024-08-06] MEDS: Topiramate 25 MG TABLET PO (08:50)
[2024-08-06] MEDS: Sertraline HCL 50 MG TABLET PO (08:50)
[2024-08-06] MEDS: Folic Acid 1 MG TABLET PO (08:50)
--- NOTE | 2024-08-06 09:42 | P.PNPSI_ITS ---
Subjective Subjective Date of Service: 08/06/24 Reason For Visit: PTSD, Generalized anxiety disorder Interim History: met with patient; discussed with team pt had upsetting nightmare which he says is rare, however still upsetting him thoughout day; pt has urges to hit head, but refrains. Agrees to [employer] Mental Status Exam Mental Status Exam Patient Appearance: Appropriate Patient Orientation: Person, Place, Time and Situation Level of Consciousness: Alert Patient Behavior: Talkative and Good Eye Contact Mood Description: Depressed and Anxious Affect Description: Anxious Patient Cognition Impaired: No Ability to Follow Directions: Good Speech Pattern: Spontaneous Speech Memory Description: Intact Hallucinations: Auditory and Visual Perceptual Disturbances: Depersonalization and Derealization Thought Process: Rumination Thought Content: positive for Perseveration and positive for Suicidal Ideation Depressive Symptoms: Thoughts of /Suicide (but less) Judgement and Insight: impaired Diagnostics Vital Signs (24Hr): Vital Signs - 24 hr 08/05/24 19:54 08/06/24 08:35 Temperature 99.6 F 97.7 F Pulse Rate 90 77 Respiratory Rate 16 Blood Pressure 135/84 129/66 Pulse Oximetry 96 98 Oxygen Delivery Method Room Air Room Air BMI result Body Mass Index 34.1 Labs 08/02/24 07:58 Medications Medications Current Medications Acetaminophen (Acetaminophen 325 Mg Tablet) 650 mg PO Q6H PRN PRN Reason: Headache/Pain, Scale 1-10 Last Admin: 08/03/24 20:33 Dose: 650 mg Al Hydroxide/Mg Hydroxide (Magnesium Hydrox/Alum Hydrox 30 Ml Oral.Susp) 30 ml PO Q6H PRN PRN Reason: Heartburn/Nausea Folic Acid (Folic Acid 1 Mg Tablet) 1 mg PO DAILY [facility] Last Admin: 08/06/24 08:50 Dose: 1 mg Hydroxyzine HCl (Hydroxyzine Hcl 25 Mg Tablet) 25 mg PO Q6H PRN PRN Reason: mild anxiety Last Admin: 08/06/24 00:10 Dose: 25 mg Lisinopril (Lisinopril 2.5 Mg Tablet) 2.5 mg PO DAILY [facility]; Protocol Last Admin: 08/06/24 08:50 Dose: 2.5 mg Magnesium Hydroxide (Milk Of Magnesia 30 Ml Oral.Susp) 30 ml PO DAILY PRN PRN Reason: Constipation Metformin HCl (Metformin Hcl Er 500 Mg Tab.Er.24h) 500 mg PO DAILY@1800 [facility] Last Admin: 08/05/24 17:11 Dose: 500 mg Multivitamins/Vitamin C (Multivitamin Tablet) 1 tab PO DAILY [facility] Last Admin: 08/06/24 08:50 Dose: 1 tab Naltrexone HCl (Naltrexone Hcl 50 Mg Tablet) 25 mg PO DAILY [facility] Stop: 08/08/24 09:01 Last Admin: 08/06/24 08:49 Dose: 25 mg Naltrexone HCl (Naltrexone Hcl 50 Mg Tablet) 50 mg PO DAILY [facility] Nicotine (Nicotine 14 Mg Patch.Td24) 14 mg TRANSDERMA DAILY PRN PRN Reason: smoking cessation Last Admin: 08/04/24 17:55 Dose: 14 mg Nicotine Polacrilex (Nicotine Polacrilex 2 Mg Gum) 2 mg BUCCAL Q2H PRN PRN Reason: Nicotine Cravings Olanzapine (Olanzapine 5 Mg Tablet) 5 mg PO Q4H PRN PRN Reason: psychosis, agitation Last Admin: 08/03/24 20:33 Dose: 5 mg Sertraline HCl (Sertraline Hcl 50 Mg Tablet) 50 mg PO DAILY [facility] Last Admin: 08/06/24 08:50 Dose: 50 mg Thiamine HCl (Thiamine Hcl 100 Mg Tablet) 100 mg PO DAILY [facility] Last Admin: 08/06/24 08:50 Dose: 100 mg Topiramate (Topiramate 25 Mg Tablet) 25 mg PO BID [facility] Last Admin: 08/06/24 08:50 Dose: 25 mg Trazodone HCl (Trazodone Hcl 50 Mg Tablet) 50 mg PO BEDTIME MRX1 PRN PRN Reason: Insomnia Last Admin: 08/06/24 00:10 Dose: 50 mg Allergies Allergies Allergy/AdvReac Type Severity Reaction Status Date / Time fish derived [fish] Allergy Difficulty Verified 08/01/24 20:58 Breathing gabapentin Allergy Difficulty Verified 08/01/24 20:58 Breathing shellfish derived [shellfish] Allergy Difficulty Verified 08/01/24 20:58 Breathing Assessment & Plan Assessment & Plan (1) Recurrent major depression: Status: Acute Code(s): F33.9 - Major depressive disorder, recurrent, unspecified (2) PTSD (post-traumatic stress disorder): Status: Acute Code(s): F43.10 - Post-traumatic stress disorder, unspecified (3) Alcohol use disorder: Status: Acute Code(s): F10.90 - Alcohol use, unspecified, uncomplicated Assessment and Plan: * restart naltrexone 25mg x3 days then increase to 50mg QD (4) Cocaine use disorder: Status: Acute Code(s): F14.10 - Cocaine abuse, uncomplicated Assessment and Plan: * topirimate 25mg BID for 5 days, then increase to 50mg BID Plan 08/06 pt had upsetting nightmare which he says is rare, however still upsetting him thoughout day; pt has urges to hit head, but refrains. Agrees to increaes zoloft Plan: increase Zoloft to 75mg Patient educated on: diagnosis, medication risk/benefits and therapeutic strategies Informed Consent: understands Reason for continued inpatient stay Substantial Risk for: rapid decompensation Time Spent With Patient Time: Total time managing care of this patient today ____ minutes.
[2024-08-06] MEDS: Nicotine 14 MG PATCH.TD24 TRANSDERMA (12:49)
[2024-08-06] MEDS: Acetaminophen 325 MG TABLET 650 MG PO (16:41)
[2024-08-06] MEDS: OLANZapine 5 MG TABLET PO (16:41)
[2024-08-06] MEDS: metFORMIN HCl ER 500 MG TAB.ER.24H PO (18:16)
[2024-08-06 20:00] VITALS: BP 118/76; PULSE 89; RESP 16; TEMP 37.1; O2SAT 95
[2024-08-07 08:00] VITALS: BP 141/77; PULSE 63; RESP 16; TEMP 36.5; O2SAT 97
[2024-08-07] MEDS: Sertraline HCL 25 MG TABLET 75 MG PO (08:17)
[2024-08-07] MEDS: Topiramate 25 MG TABLET PO ×2 (08:18→20:37)
[2024-08-07] MEDS: lisinopriL 2.5 MG TABLET PO (08:18)
[2024-08-07] MEDS: Thiamine HCL 100 MG TABLET PO (08:18)
[2024-08-07] MEDS: Multivitamin TABLET 1 TAB PO (08:19)
[2024-08-07] MEDS: Folic Acid 1 MG TABLET PO (08:19)
[2024-08-07] MEDS: Naltrexone HCl 50 MG TABLET 25 MG PO (08:19)
[2024-08-07 08:25] LABS: Glucose, Whole Blood 230 mg/dL (60-115)
--- NOTE | 2024-08-07 08:45 | HO.PSYCHPN ---
Subjective Subjective Date of Service: 08/07/24 Reason For Visit: PTSD, Generalized anxiety disorder Interim History: Met with patient; discussed with team Patient reports he is feeling a little better than yesterday. Last night he did Bang his head on the wall 1 time in frustration; took Zyprexa which said it helped calmed down his anxiety/agitation but was also rather sedating. Said he would like to keep it just as a p.r.n.. Patient discussed how on Ozempic he had resolved his diabetes reflected in his current hemoglobin A1c. Patient has been off metformin and would like to get back on regular dose of a 1000 b.i.d. as his blood sugar was mildly elevated today with a 1 time POC. Mental Status Exam Mental Status Exam Patient Appearance: Appropriate Patient Orientation: Person, Place, Time and Situation Level of Consciousness: Alert Patient Behavior: Talkative and Good Eye Contact Mood Description: Depressed and Anxious Affect Description: Anxious Patient Cognition Impaired: No Ability to Follow Directions: Good Speech Pattern: Spontaneous Speech Memory Description: Intact Hallucinations: Auditory and Visual Perceptual Disturbances: Depersonalization and Derealization Thought Process: Rumination Thought Content: positive for Perseveration and positive for Suicidal Ideation Depressive Symptoms: Thoughts of /Suicide (but less) Judgement and Insight: impaired Diagnostics Vital Signs (24Hr): Vital Signs - 24 hr 08/06/24 20:00 08/07/24 08:00 Temperature 98.7 F 97.7 F Pulse Rate 89 63 Respiratory Rate 16 16 Blood Pressure 118/76 141/77 H Pulse Oximetry 95 97 Oxygen Delivery Method Room Air Room Air BMI result Body Mass Index 34.1 Labs 08/02/24 07:58 Labs: Laboratory Results - last 48 hr 08/07/24 08:22 POC Glucose 230 H Medications Medications Current Medications Acetaminophen (Acetaminophen 325 Mg Tablet) 650 mg PO Q6H PRN PRN Reason: Headache/Pain, Scale 1-10 Last Admin: 08/06/24 16:41 Dose: 650 mg Al Hydroxide/Mg Hydroxide (Magnesium Hydrox/Alum Hydrox 30 Ml Oral.Susp) 30 ml PO Q6H PRN PRN Reason: Heartburn/Nausea Folic Acid (Folic Acid 1 Mg Tablet) 1 mg PO DAILY [facility] Last Admin: 08/07/24 08:19 Dose: 1 mg Hydroxyzine HCl (Hydroxyzine Hcl 25 Mg Tablet) 25 mg PO Q6H PRN PRN Reason: mild anxiety Last Admin: 08/06/24 16:41 Dose: 25 mg Lisinopril (Lisinopril 2.5 Mg Tablet) 2.5 mg PO DAILY [facility]; Protocol Last Admin: 08/07/24 08:18 Dose: 2.5 mg Magnesium Hydroxide (Milk Of Magnesia 30 Ml Oral.Susp) 30 ml PO DAILY PRN PRN Reason: Constipation Metformin HCl (Metformin Hcl Er 500 Mg Tab.Er.24h) 500 mg PO DAILY@1800 [facility] Last Admin: 08/06/24 18:16 Dose: 500 mg Multivitamins/Vitamin C (Multivitamin Tablet) 1 tab PO DAILY [facility] Last Admin: 08/07/24 08:19 Dose: 1 tab Naltrexone HCl (Naltrexone Hcl 50 Mg Tablet) 25 mg PO DAILY [facility] Stop: 08/08/24 09:01 Last Admin: 08/07/24 08:19 Dose: 25 mg Naltrexone HCl (Naltrexone Hcl 50 Mg Tablet) 50 mg PO DAILY [facility] Nicotine (Nicotine 14 Mg Patch.Td24) 14 mg TRANSDERMA DAILY PRN PRN Reason: smoking cessation Last Admin: 08/06/24 12:49 Dose: 14 mg Nicotine Polacrilex (Nicotine Polacrilex 2 Mg Gum) 2 mg BUCCAL Q2H PRN PRN Reason: Nicotine Cravings Olanzapine (Olanzapine 5 Mg Tablet) 5 mg PO Q4H PRN PRN Reason: psychosis, agitation Last Admin: 08/06/24 16:41 Dose: 5 mg Sertraline HCl (Sertraline Hcl 25 Mg Tablet) 75 mg PO DAILY [facility] Last Admin: 08/07/24 08:17 Dose: 75 mg Thiamine HCl (Thiamine Hcl 100 Mg Tablet) 100 mg PO DAILY [facility] Last Admin: 08/07/24 08:18 Dose: 100 mg Topiramate (Topiramate 25 Mg Tablet) 25 mg PO BID [facility] Last Admin: 08/07/24 08:18 Dose: 25 mg Trazodone HCl (Trazodone Hcl 50 Mg Tablet) 50 mg PO BEDTIME MRX1 PRN PRN Reason: Insomnia Last Admin: 08/06/24 00:10 Dose: 50 mg Allergies Allergies Allergy/AdvReac Type Severity Reaction Status Date / Time fish derived [fish] Allergy Difficulty Verified 08/01/24 20:58 Breathing gabapentin Allergy Difficulty Verified 08/01/24 20:58 Breathing shellfish derived [shellfish] Allergy Difficulty Verified 08/01/24 20:58 Breathing Assessment & Plan Assessment & Plan (1) PTSD (post-traumatic stress disorder): Status: Acute Code(s): F43.10 - Post-traumatic stress disorder, unspecified (2) Recurrent major depression: Status: Acute Code(s): F33.9 - Major depressive disorder, recurrent, unspecified (3) Alcohol use disorder: Status: Acute Code(s): F10.90 - Alcohol use, unspecified, uncomplicated (4) Polysubstance use disorder: Status: Acute Code(s): F19.90 - Other psychoactive substance use, unspecified, uncomplicated Plan HPI: 49 yo male, transfer from [facility] for treatment of polysubstance use, depression, SI, homelessness. Reports he was working and had an apartment, however, his apartment was taken over at [facility], becoming a hub for substance distribution and crime. His landlord learned of this and is in process of eviction. As a result pt has attempted suicide three times this week by OD of crack, clonidine and lying on the train tracks waiting to be hit by an oncoming train. Reports decline for approximately 5 weeks. Has had 9 months of sobriety until June 2024. Recently resumed alcohol. AA peers took pt for help prior to admit. Today, detox is rough, pt hearing voices-using olanzapine, lorazepam. Brief meeting as he is sedate and wanting to rest Hospital course: remains depressed; complains of AH; withdrawal waning (CIWA 0,2,0,2) 08/06 Patient reports he is feeling a little better than yesterday. Last night he did Bang his head on the wall 1 time in frustration; took Zyprexa which said it helped calmed down his anxiety/agitation but was also rather sedating. Said he would like to keep it just as a p.r.n.. Patient discussed how on Ozempic he had resolved his diabetes reflected in his current hemoglobin A1c. Patient has been off metformin and would like to get back on regular dose of a 1000 b.i.d. as his blood sugar was mildly elevated today with a 1 time POC. -increase metformin to 1000 q.h.s. and 500 daily; will likely go back to 1000 b.i.d. but will check POC 1st -the added POC -Zoloft increase to 75 mg Plan Admit, CV, 15 minute checks Increased metformin ER to 1000 mg q.h.s.; adding daytime metformin 500 mg; used to be on 1000 b.i.d. Adding POC Increased Zoloft to 75 mg Collateral Contacts Olanzapine prn Lorazepam detox/CIWA Encourage milieu involvement as detox progresses Discharge planning Patient educated on: diagnosis, medication risk/benefits and therapeutic strategies Informed Consent: understands Reason for continued inpatient stay Substantial Risk for: rapid decompensation Time Spent With Patient Time: Total time managing care of this patient today ____ minutes.
[2024-08-07] MEDS: metFORMIN HCl ER 500 MG TAB.ER.24H 1000 MG PO (18:47)
[2024-08-07 20:00] VITALS: BP 137/81; PULSE 89; TEMP 36.7; O2SAT 96
[2024-08-07] MEDS: hydrOXYzine HCL 25 MG TABLET PO (20:37)
[2024-08-07 21:34] LABS: Glucose, Whole Blood 228 mg/dL (60-115)
[2024-08-07] MEDS: traZODone HCL 50 MG TABLET PO (23:04)
--- NOTE | 2024-08-08 07:51 | PC.NURSE ---
Late Entry: River Ferraro was given Lorazepam 1 mg po at 2354August 01, 2024 for c/o high anxiety .
[2024-08-08 08:00] VITALS: BP 135/85; PULSE 73; RESP 16; TEMP 36.3; O2SAT 99
[2024-08-08] MEDS: Multivitamin TABLET 1 TAB PO (09:16)
[2024-08-08] MEDS: metFORMIN HCl ER 500 MG TAB.ER.24H PO (09:16)
[2024-08-08] MEDS: hydrOXYzine HCL 25 MG TABLET PO ×3 (09:16→21:03)
[2024-08-08] MEDS: lisinopriL 2.5 MG TABLET PO (09:16)
[2024-08-08] MEDS: Sertraline HCL 25 MG TABLET 75 MG PO (09:16)
[2024-08-08] MEDS: Topiramate 25 MG TABLET PO ×2 (09:16→21:02)
[2024-08-08] MEDS: Thiamine HCL 100 MG TABLET PO (09:16)
[2024-08-08] MEDS: Folic Acid 1 MG TABLET PO (09:16)
[2024-08-08] MEDS: Naltrexone HCl 50 MG TABLET 25 MG PO (09:17)
--- NOTE | 2024-08-08 10:21 | HO.PSYCHPN ---
Subjective Subjective Date of Service: 08/08/24 Reason For Visit: PTSD, Generalized anxiety disorder Subjective Notes: Conditional Voluntary Healthcare Proxy: No Guardianship: No Medical Problems Affecting Mental Status: No Interim History: Metformin, Sertraline increase over the weekend. Reports a difficult few days-learned that a friend relapsed and over this weekend. Nephew has been targeted by a local gang as his father has past issues with them that were never resolved. Father is ill and pt argued with daughter's mother this weekend. Reports rubbing his face/head and head banging on the window screen in self harming intent. Auditory perceptual alterations are now voices, not mumbles . They repeat do it . Discussed Risperdal trial which pt reports he has had and tolerated by history. Medication Compliance: Yes Side effects from medications: No Attending Groups: Intermittent Review of Systems Acute medical concerns: No Medical Review of Systems: unchanged Review of Systems Review of Systems Denies Mental Status Exam Mental Status Exam Patient Appearance: Appropriate Patient Orientation: Person, Place, Time and Situation Level of Consciousness: Alert Patient Behavior: Talkative and Good Eye Contact Mood Description: Depressed Affect Description: Flat Patient Cognition Impaired: No Ability to Follow Directions: Good Speech Pattern: Spontaneous Speech Memory Description: Intact Hallucinations: Auditory Perceptual Disturbances: Depersonalization and Derealization Thought Process: Rumination Thought Content: positive for Circumstantial, positive for Perseveration and positive for Suicidal Ideation Depressive Symptoms: Thoughts of /Suicide Judgement: Fair Diagnostics Vital Signs (24Hr): Vital Signs - 24 hr 08/07/24 20:00 08/08/24 08:00 Temperature 98.0 F 97.3 F Pulse Rate 89 73 Respiratory Rate 16 Blood Pressure 137/81 135/85 Pulse Oximetry 96 99 Oxygen Delivery Method Room Air Room Air BMI result Body Mass Index 34.1 Labs 08/02/24 07:58 Labs: Laboratory Results - last 48 hr 08/07/24 08/07/24 08:22 21:29 POC Glucose 230 H 228 H Medications Medications Current Medications Acetaminophen (Acetaminophen 325 Mg Tablet) 650 mg PO Q6H PRN PRN Reason: Headache/Pain, Scale 1-10 Last Admin: 08/06/24 16:41 Dose: 650 mg Al Hydroxide/Mg Hydroxide (Magnesium Hydrox/Alum Hydrox 30 Ml Oral.Susp) 30 ml PO Q6H PRN PRN Reason: Heartburn/Nausea Folic Acid (Folic Acid 1 Mg Tablet) 1 mg PO DAILY [facility] Last Admin: 08/08/24 09:16 Dose: 1 mg Hydroxyzine HCl (Hydroxyzine Hcl 25 Mg Tablet) 25 mg PO Q6H PRN PRN Reason: mild anxiety Last Admin: 08/08/24 09:16 Dose: 25 mg Lisinopril (Lisinopril 2.5 Mg Tablet) 2.5 mg PO DAILY [facility]; Protocol Last Admin: 08/08/24 09:16 Dose: 2.5 mg Magnesium Hydroxide (Milk Of Magnesia 30 Ml Oral.Susp) 30 ml PO DAILY PRN PRN Reason: Constipation Metformin HCl (Metformin Hcl Er 500 Mg Tab.Er.24h) 1,000 mg PO DAILY@1800 [facility] Last Admin: 08/07/24 18:47 Dose: 1,000 mg Metformin HCl (Metformin Hcl Er 500 Mg Tab.Er.24h) 500 mg PO DAILY [facility] Last Admin: 08/08/24 09:16 Dose: 500 mg Multivitamins/Vitamin C (Multivitamin Tablet) 1 tab PO DAILY [facility] Last Admin: 08/08/24 09:16 Dose: 1 tab Naltrexone HCl (Naltrexone Hcl 50 Mg Tablet) 50 mg PO DAILY [facility] Nicotine (Nicotine 14 Mg Patch.Td24) 14 mg TRANSDERMA DAILY PRN PRN Reason: smoking cessation Last Admin: 08/06/24 12:49 Dose: 14 mg Nicotine Polacrilex (Nicotine Polacrilex 2 Mg Gum) 2 mg BUCCAL Q2H PRN PRN Reason: Nicotine Cravings Olanzapine (Olanzapine 5 Mg Tablet) 5 mg PO Q4H PRN PRN Reason: psychosis, agitation Last Admin: 08/06/24 16:41 Dose: 5 mg Sertraline HCl (Sertraline Hcl 25 Mg Tablet) 75 mg PO DAILY [facility] Last Admin: 08/08/24 09:16 Dose: 75 mg Thiamine HCl (Thiamine Hcl 100 Mg Tablet) 100 mg PO DAILY [facility] Last Admin: 08/08/24 09:16 Dose: 100 mg Topiramate (Topiramate 25 Mg Tablet) 25 mg PO BID [facility] Last Admin: 08/08/24 09:16 Dose: 25 mg Trazodone HCl (Trazodone Hcl 50 Mg Tablet) 50 mg PO BEDTIME MRX1 PRN PRN Reason: Insomnia Last Admin: 08/07/24 23:04 Dose: 50 mg Allergies Allergies Allergy/AdvReac Type Severity Reaction Status Date / Time fish derived [fish] Allergy Difficulty Verified 08/01/24 20:58 Breathing gabapentin Allergy Difficulty Verified 08/01/24 20:58 Breathing shellfish derived [shellfish] Allergy Difficulty Verified 08/01/24 20:58 Breathing Assessment & Plan Assessment & Plan (1) PTSD (post-traumatic stress disorder): Status: Acute Code(s): F43.10 - Post-traumatic stress disorder, unspecified (2) Recurrent major depression: Status: Acute Code(s): F33.9 - Major depressive disorder, recurrent, unspecified (3) Alcohol use disorder: Status: Acute Code(s): F10.90 - Alcohol use, unspecified, uncomplicated (4) Polysubstance use disorder: Status: Acute Code(s): F19.90 - Other psychoactive substance use, unspecified, uncomplicated Plan HPI: 49 yo male, transfer from [facility] for treatment of polysubstance use, depression, SI, homelessness. Reports he was working and had an apartment, however, his apartment was taken over at [employer], becoming a hub for substance distribution and crime. His landlord learned of this and is in process of eviction. As a result pt has attempted suicide three times this week by OD of crack, clonidine and lying on the train tracks waiting to be hit by an oncoming train. Reports decline for approximately 5 weeks. Has had 9 months of sobriety until June 2024. Recently resumed alcohol. AA peers took pt for help prior to admit. Today, detox is rough, pt hearing voices-using olanzapine, lorazepam. Brief meeting as he is sedate and wanting to rest Hospital course: remains depressed; complains of AH; withdrawal waning (CIWA 0,2,0,2) 08/06 Patient reports he is feeling a little better than yesterday. Last night he did Bang his head on the wall 1 time in frustration; took Zyprexa which said it helped calmed down his anxiety/agitation but was also rather sedating. Said he would like to keep it just as a p.r.n.. Patient discussed how on Ozempic he had resolved his diabetes reflected in his current hemoglobin A1c. Patient has been off metformin and would like to get back on regular dose of a 1000 b.i.d. as his blood sugar was mildly elevated today with a 1 time POC. -increase metformin to 1000 q.h.s. and 500 daily; will likely go back to 1000 b.i.d. but will check POC 1st -the added POC -Zoloft increase to 75 mg 08/08: Risperdal 1 mg bid for auditory perceptual alterations Plan Admit, CV, 15 minute checks Increased metformin ER to 1000 mg q.h.s.; adding daytime metformin 500 mg; used to be on 1000 b.i.d. Adding POC Increased Zoloft to 75 mg Collateral Contacts Olanzapine prn Lorazepam detox/CIWA Encourage milieu involvement as detox progresses Discharge planning Patient educated on: medication risk/benefits Reason for continued inpatient stay Substantial Risk for: rapid decompensation Time Spent With Patient Time: Total time managing care of this patient today ____ minutes.
[2024-08-08 12:47] LABS: Glucose, Whole Blood 267 mg/dL (60-115)
[2024-08-08] MEDS: risperiDONE 1 MG TABLET PO ×2 (14:38→21:03)
[2024-08-08] MEDS: metFORMIN HCl ER 500 MG TAB.ER.24H 1000 MG PO (17:50)
[2024-08-08 19:43] VITALS: BP 119/69; PULSE 90; TEMP 36.6; O2SAT 97
[2024-08-08 20:42] LABS: Glucose, Whole Blood 261 mg/dL (60-115)
[2024-08-09 08:04] VITALS: BP 108/68; PULSE 70; RESP 16; TEMP 36.4; O2SAT 97
[2024-08-09 08:19] LABS: Glucose, Whole Blood 205 mg/dL (60-115)
[2024-08-09] MEDS: lisinopriL 2.5 MG TABLET PO (08:40)
[2024-08-09] MEDS: Topiramate 25 MG TABLET PO ×2 (08:40→21:07)
[2024-08-09] MEDS: Thiamine HCL 100 MG TABLET PO (08:41)
[2024-08-09] MEDS: Folic Acid 1 MG TABLET PO (08:41)
[2024-08-09] MEDS: Naltrexone HCl 50 MG TABLET PO (08:41)
[2024-08-09] MEDS: Nicotine 14 MG PATCH.TD24 TRANSDERMA (08:41)
[2024-08-09] MEDS: risperiDONE 1 MG TABLET PO ×2 (08:41→21:07)
[2024-08-09] MEDS: Multivitamin TABLET 1 TAB PO (08:41)
[2024-08-09] MEDS: Sertraline HCL 25 MG TABLET 75 MG PO (08:41)
[2024-08-09] MEDS: metFORMIN HCl ER 500 MG TAB.ER.24H PO (08:45)
[2024-08-09 08:54] LABS: Anion Gap 13 (12-20); Blood Urea Nitrogen 18 mg/dL (9-16); Calcium 9.6 mg/dL (8.4-10.2); Carbon Dioxide 30 mmol/L (22-29); Chloride 101 mmol/L (96-108); Creatinine Clr Calc Pharmacy 182.6; Estimated Glomerular Filt Rate > 60; Glucose Random 215 mg/dL (60-115); Potassium 4.5 mmol/L (3.3-5.1); Sodium 139 mmol/L (135-145)
--- NOTE | 2024-08-09 09:45 | HO.PSYCHPN ---
Subjective Subjective Date of Service: 08/09/24 Reason For Visit: PTSD, Generalized anxiety disorder Subjective Notes: Conditional Voluntary Healthcare Proxy: No Guardianship: No Medical Problems Affecting Mental Status: No Interim History: Tolerating Risperdal, without adverse effects, however dose is low, so no real efficacy as yet. Reports tolerance and efficacy by history. Sleeping when attempted to meet today. Awake, interactive during dinner. Team continues to do a treatment search post discharge. Medication Compliance: Yes Side effects from medications: No Attending Groups: Intermittent Review of Systems Acute medical concerns: No Review of Systems Review of Systems Asks for Ozempic which is not on formulary. Will accept sliding scale insulin for high POC's Mental Status Exam Mental Status Exam Patient Appearance: Appropriate Patient Orientation: Person, Place, Time and Situation Level of Consciousness: Alert Patient Behavior: Talkative and Good Eye Contact Mood Description: Depressed Affect Description: Flat Patient Cognition Impaired: No Ability to Follow Directions: Good Speech Pattern: Spontaneous Speech Memory Description: Intact Hallucinations: Auditory Perceptual Disturbances: Depersonalization and Derealization Thought Process: Rumination Thought Content: positive for Circumstantial, positive for Perseveration and positive for Suicidal Ideation Depressive Symptoms: Thoughts of /Suicide Judgement: Fair Diagnostics Vital Signs (24Hr): Vital Signs - 24 hr 08/08/24 19:43 08/09/24 08:04 Temperature 97.8 F 97.5 F Pulse Rate 90 70 Respiratory Rate 16 Blood Pressure 119/69 108/68 Pulse Oximetry 97 97 Oxygen Delivery Method Room Air Room Air BMI result Body Mass Index 34.1 Labs 08/09/24 08:22 Labs: Laboratory Results - last 48 hr 08/07/24 08/08/24 08/08/24 21:29 12:43 20:25 Sodium Potassium Chloride Carbon Dioxide Anion Gap BUN Creatinine Estim Creat Clear Calc Estimated GFR POC Glucose 228 H 267 H 261 H Random Glucose Calcium 08/09/24 08/09/24 08:16 08:22 Sodium 139 Potassium 4.5 Chloride 101 Carbon Dioxide 30 H Anion Gap 13 BUN 18 H Creatinine 0.72 Estim Creat Clear Calc 182.6 Estimated GFR > 60 POC Glucose 205 H Random Glucose 215 H Calcium 9.6 Medications Medications Current Medications Acetaminophen (Acetaminophen 325 Mg Tablet) 650 mg PO Q6H PRN PRN Reason: Headache/Pain, Scale 1-10 Last Admin: 08/06/24 16:41 Dose: 650 mg Al Hydroxide/Mg Hydroxide (Magnesium Hydrox/Alum Hydrox 30 Ml Oral.Susp) 30 ml PO Q6H PRN PRN Reason: Heartburn/Nausea Folic Acid (Folic Acid 1 Mg Tablet) 1 mg PO DAILY [facility] Last Admin: 08/09/24 08:41 Dose: 1 mg Hydroxyzine HCl (Hydroxyzine Hcl 25 Mg Tablet) 25 mg PO Q6H PRN PRN Reason: mild anxiety Last Admin: 08/08/24 21:03 Dose: 25 mg Lisinopril (Lisinopril 2.5 Mg Tablet) 2.5 mg PO DAILY [facility]; Protocol Last Admin: 08/09/24 08:40 Dose: 2.5 mg Magnesium Hydroxide (Milk Of Magnesia 30 Ml Oral.Susp) 30 ml PO DAILY PRN PRN Reason: Constipation Metformin HCl (Metformin Hcl Er 500 Mg Tab.Er.24h) 1,000 mg PO DAILY@1800 [facility] Last Admin: 08/08/24 17:50 Dose: 1,000 mg Metformin HCl (Metformin Hcl Er 500 Mg Tab.Er.24h) 500 mg PO DAILY [facility] Last Admin: 08/09/24 08:45 Dose: 500 mg Multivitamins/Vitamin C (Multivitamin Tablet) 1 tab PO DAILY [facility] Last Admin: 08/09/24 08:41 Dose: 1 tab Naltrexone HCl (Naltrexone Hcl 50 Mg Tablet) 50 mg PO DAILY [facility] Last Admin: 08/09/24 08:41 Dose: 50 mg Nicotine (Nicotine 14 Mg Patch.Td24) 14 mg TRANSDERMA DAILY PRN PRN Reason: smoking cessation Last Admin: 08/09/24 08:41 Dose: 14 mg Nicotine Polacrilex (Nicotine Polacrilex 2 Mg Gum) 2 mg BUCCAL Q2H PRN PRN Reason: Nicotine Cravings Olanzapine (Olanzapine 5 Mg Tablet) 5 mg PO Q4H PRN PRN Reason: psychosis, agitation Last Admin: 08/06/24 16:41 Dose: 5 mg Risperidone (Risperidone 1 Mg Tablet) 1 mg PO BID [facility] Last Admin: 08/09/24 08:41 Dose: 1 mg Sertraline HCl (Sertraline Hcl 25 Mg Tablet) 75 mg PO DAILY [facility] Last Admin: 08/09/24 08:41 Dose: 75 mg Thiamine HCl (Thiamine Hcl 100 Mg Tablet) 100 mg PO DAILY [facility] Last Admin: 08/09/24 08:41 Dose: 100 mg Topiramate (Topiramate 25 Mg Tablet) 25 mg PO BID [place] Last Admin: 08/09/24 08:40 Dose: 25 mg Trazodone HCl (Trazodone Hcl 50 Mg Tablet) 50 mg PO BEDTIME MRX1 PRN PRN Reason: Insomnia Last Admin: 08/07/24 23:04 Dose: 50 mg Allergies Allergies Allergy/AdvReac Type Severity Reaction Status Date / Time fish derived [fish] Allergy Difficulty Verified 08/01/24 20:58 Breathing gabapentin Allergy Difficulty Verified 08/01/24 20:58 Breathing shellfish derived [shellfish] Allergy Difficulty Verified 08/01/24 20:58 Breathing Assessment & Plan Assessment & Plan (1) PTSD (post-traumatic stress disorder): Status: Acute Code(s): F43.10 - Post-traumatic stress disorder, unspecified (2) Recurrent major depression: Status: Acute Code(s): F33.9 - Major depressive disorder, recurrent, unspecified (3) Alcohol use disorder: Status: Acute Code(s): F10.90 - Alcohol use, unspecified, uncomplicated (4) Polysubstance use disorder: Status: Acute Code(s): F19.90 - Other psychoactive substance use, unspecified, uncomplicated Plan HPI: 49 yo male, transfer from [facility] for treatment of polysubstance use, depression, SI, homelessness. Reports he was working and had an apartment, however, his apartment was taken over at [facility], becoming a hub for substance distribution and crime. His landlord learned of this and is in process of eviction. As a result pt has attempted suicide three times this week by OD of crack, clonidine and lying on the train tracks waiting to be hit by an oncoming train. Reports decline for approximately 5 weeks. Has had 9 months of sobriety until June 2024. Recently resumed alcohol. AA peers took pt for help prior to admit. Today, detox is rough, pt hearing voices-using olanzapine, lorazepam. Brief meeting as he is sedate and wanting to rest Hospital course: remains depressed; complains of AH; withdrawal waning (CIWA 0,2,0,2) 08/06 Patient reports he is feeling a little better than yesterday. Last night he did Bang his head on the wall 1 time in frustration; took Zyprexa which said it helped calmed down his anxiety/agitation but was also rather sedating. Said he would like to keep it just as a p.r.n.. Patient discussed how on Ozempic he had resolved his diabetes reflected in his current hemoglobin A1c. Patient has been off metformin and would like to get back on regular dose of a 1000 b.i.d. as his blood sugar was mildly elevated today with a 1 time POC. -increase metformin to 1000 q.h.s. and 500 daily; will likely go back to 1000 b.i.d. but will check POC 1st -the added POC -Zoloft increase to 75 mg 08/08: Risperdal 1 mg bid for auditory perceptual alterations 08/09: Continue tx Plan Admit, CV, 15 minute checks Increased metformin ER to 1000 mg q.h.s.; adding daytime metformin 500 mg; used to be on 1000 b.i.d. Adding POC Increased Zoloft to 75 mg Collateral Contacts Olanzapine prn Lorazepam detox/CIWA Encourage milieu involvement as detox progresses Discharge planning Reason for continued inpatient stay Substantial Risk for: rapid decompensation Time Spent With Patient Time: Total time managing care of this patient today ____ minutes.
[2024-08-09] MEDS: Nicotine Polacrilex 2 MG GUM BUCCAL (17:03)
[2024-08-09] MEDS: hydrOXYzine HCL 25 MG TABLET PO ×2 (17:03→21:07)
[2024-08-09] MEDS: metFORMIN HCl ER 500 MG TAB.ER.24H 1000 MG PO (18:17)
[2024-08-09 19:47] VITALS: BP 124/74; PULSE 94; TEMP 36.9; O2SAT 97
[2024-08-09 20:08] LABS: Glucose, Whole Blood 243 mg/dL (60-115)
[2024-08-09] MEDS: Insulin Lispro 100 UNIT/ML 3 ML VIAL SUBCUT (21:06)
[2024-08-09] MEDS: traZODone HCL 50 MG TABLET PO (21:07)
[2024-08-10 07:48] LABS: Glucose, Whole Blood 247 mg/dL (60-115)
[2024-08-10 08:01] VITALS: BP 112/58; PULSE 76; RESP 16; TEMP 36.4; O2SAT 95
[2024-08-10] MEDS: Insulin Lispro 100 UNIT/ML 3 ML VIAL SUBCUT ×2 (08:14→21:41)
[2024-08-10] MEDS: Thiamine HCL 100 MG TABLET PO (08:15)
[2024-08-10] MEDS: Topiramate 25 MG TABLET PO ×2 (08:15→21:42)
[2024-08-10] MEDS: lisinopriL 2.5 MG TABLET PO (08:15)
[2024-08-10] MEDS: Naltrexone HCl 50 MG TABLET PO (08:15)
[2024-08-10] MEDS: Sertraline HCL 25 MG TABLET 75 MG PO (08:15)
[2024-08-10] MEDS: risperiDONE 1 MG TABLET PO ×2 (08:15→21:43)
[2024-08-10] MEDS: Folic Acid 1 MG TABLET PO (08:15)
[2024-08-10] MEDS: metFORMIN HCl ER 500 MG TAB.ER.24H PO (08:15)
[2024-08-10] MEDS: Multivitamin TABLET 1 TAB PO (08:15)
--- NOTE | 2024-08-10 12:03 | P.PNPSI_ITS ---
Subjective Subjective Date of Service: 08/10/24 Reason For Visit: PTSD, Generalized anxiety disorder Subjective Notes: Conditional Voluntary Healthcare Proxy: No Guardianship: No Medical Problems Affecting Mental Status: No Interim History: Spending much of the day resting. Denies current sx. Apprehensive about not being accepted yet by a program. Believes a return to the street would not be of benefit. Social with peers. Increased presence and energy in the evening noted. Medication Compliance: Yes Side effects from medications: No Attending Groups: Intermittent Review of Systems Acute medical concerns: No Medical Review of Systems: unchanged Review of Systems Review of Systems Denies Mental Status Exam Mental Status Exam Patient Appearance: Appropriate Patient Orientation: Person, Place, Time and Situation Level of Consciousness: Alert Patient Behavior: Talkative and Good Eye Contact Mood Description: Depressed Affect Description: Flat Patient Cognition Impaired: No Ability to Follow Directions: Good Speech Pattern: Spontaneous Speech Memory Description: Intact Hallucinations: Auditory Perceptual Disturbances: Depersonalization and Derealization Thought Process: Rumination Thought Content: positive for Circumstantial, positive for Perseveration and positive for Suicidal Ideation (denies) Depressive Symptoms: Thoughts of /Suicide (denies) Judgement: Fair Diagnostics Vital Signs (24Hr): Vital Signs - 24 hr 08/09/24 19:47 08/10/24 08:01 Temperature 98.4 F 97.5 F Pulse Rate 94 76 Respiratory Rate 16 Blood Pressure 124/74 112/58 L Pulse Oximetry 97 95 Oxygen Delivery Method Room Air Room Air BMI result Body Mass Index 34.1 Labs 08/09/24 08:22 Labs: Laboratory Results - last 48 hr 08/08/24 08/08/24 08/09/24 12:43 20:25 08:16 Sodium Potassium Chloride Carbon Dioxide Anion Gap BUN Creatinine Estim Creat Clear Calc Estimated GFR POC Glucose 267 H 261 H 205 H Random Glucose Calcium 08/09/24 08/09/24 08/10/24 08:22 20:05 07:44 Sodium 139 Potassium 4.5 Chloride 101 Carbon Dioxide 30 H Anion Gap 13 BUN 18 H Creatinine 0.72 Estim Creat Clear Calc 182.6 Estimated GFR > 60 POC Glucose 243 H 247 H Random Glucose 215 H Calcium 9.6 Medications Medications Current Medications Acetaminophen (Acetaminophen 325 Mg Tablet) 650 mg PO Q6H PRN PRN Reason: Headache/Pain, Scale 1-10 Last Admin: 08/06/24 16:41 Dose: 650 mg Al Hydroxide/Mg Hydroxide (Magnesium Hydrox/Alum Hydrox 30 Ml Oral.Susp) 30 ml PO Q6H PRN PRN Reason: Heartburn/Nausea Dextrose (Dextrose 50 % 25 Gm/50 Ml Syringe) 25 gm IVPUSH Q15M PRN; Protocol PRN Reason: per Hypoglycemia Standing Ord. Folic Acid (Folic Acid 1 Mg Tablet) 1 mg PO DAILY [facility] Last Admin: 08/10/24 08:15 Dose: 1 mg Glucose (Glucose Gel 15 Gm Gel..Gram.) 15 gm PO Q15M PRN; Protocol PRN Reason: per Hypoglycemia Standing Ord. Hydroxyzine HCl (Hydroxyzine Hcl 25 Mg Tablet) 25 mg PO Q6H PRN PRN Reason: mild anxiety Last Admin: 08/09/24 21:07 Dose: 25 mg Insulin Human Lispro (Insulin Lispro 100 Unit/Ml 3 Ml Vial) 0 unit SUBCUT BID [facility]; Protocol Lisinopril (Lisinopril 2.5 Mg Tablet) 2.5 mg PO DAILY [facility]; Protocol Last Admin: 08/10/24 08:15 Dose: 2.5 mg Magnesium Hydroxide (Milk Of Magnesia 30 Ml Oral.Susp) 30 ml PO DAILY PRN PRN Reason: Constipation Metformin HCl (Metformin Hcl Er 500 Mg Tab.Er.24h) 1,000 mg PO DAILY@1800 [facility] Last Admin: 08/09/24 18:17 Dose: 1,000 mg Metformin HCl (Metformin Hcl Er 500 Mg Tab.Er.24h) 500 mg PO DAILY [facility] Last Admin: 08/10/24 08:15 Dose: 500 mg Multivitamins/Vitamin C (Multivitamin Tablet) 1 tab PO DAILY [facility] Last Admin: 08/10/24 08:15 Dose: 1 tab Naltrexone HCl (Naltrexone Hcl 50 Mg Tablet) 50 mg PO DAILY [facility] Last Admin: 08/10/24 08:15 Dose: 50 mg Nicotine (Nicotine 14 Mg Patch.Td24) 14 mg TRANSDERMA DAILY PRN PRN Reason: smoking cessation Last Admin: 08/09/24 08:41 Dose: 14 mg Nicotine Polacrilex (Nicotine Polacrilex 2 Mg Gum) 2 mg BUCCAL Q2H PRN PRN Reason: Nicotine Cravings Last Admin: 08/09/24 17:03 Dose: 2 mg Olanzapine (Olanzapine 5 Mg Tablet) 5 mg PO Q4H PRN PRN Reason: psychosis, agitation Last Admin: 08/06/24 16:41 Dose: 5 mg Risperidone (Risperidone 1 Mg Tablet) 1 mg PO BID [facility] Last Admin: 08/10/24 08:15 Dose: 1 mg Sertraline HCl (Sertraline Hcl 25 Mg Tablet) 75 mg PO DAILY [facility] Last Admin: 08/10/24 08:15 Dose: 75 mg Thiamine HCl (Thiamine Hcl 100 Mg Tablet) 100 mg PO DAILY [facility] Last Admin: 08/10/24 08:15 Dose: 100 mg Topiramate (Topiramate 25 Mg Tablet) 25 mg PO BID [facility] Last Admin: 08/10/24 08:15 Dose: 25 mg Trazodone HCl (Trazodone Hcl 50 Mg Tablet) 50 mg PO BEDTIME MRX1 PRN PRN Reason: Insomnia Last Admin: 08/09/24 21:07 Dose: 50 mg Allergies Allergies Allergy/AdvReac Type Severity Reaction Status Date / Time fish derived (fish) Allergy Difficulty Verified 08/01/24 20:58 Breathing gabapentin Allergy Difficulty Verified 08/01/24 20:58 Breathing shellfish derived (shellfish) Allergy Difficulty Verified 08/01/24 20:58 Breathing Assessment & Plan Assessment & Plan (1) PTSD (post-traumatic stress disorder): Status: Acute Code(s): F43.10 - Post-traumatic stress disorder, unspecified (2) Recurrent major depression: Status: Acute Code(s): F33.9 - Major depressive disorder, recurrent, unspecified (3) Alcohol use disorder: Status: Acute Code(s): F10.90 - Alcohol use, unspecified, uncomplicated (4) Polysubstance use disorder: Status: Acute Code(s): F19.90 - Other psychoactive substance use, unspecified, uncomplicated Plan HPI: 49 yo male, transfer from [facility] for treatment of polysubstance use, depression, SI, homelessness. Reports he was working and had an apartment, however, his apartment was taken over at [facility], becoming a hub for substance distribution and crime. His landlord learned of this and is in process of eviction. As a result pt has attempted suicide three times this week by OD of crack, clonidine and lying on the train tracks waiting to be hit by an oncoming train. Reports decline for approximately 5 weeks. Has had 9 months of sobriety until June 2024. Recently resumed alcohol. AA peers took pt for help prior to admit. Today, detox is rough, pt hearing voices-using olanzapine, lorazepam. Brief meeting as he is sedate and wanting to rest Hospital course: remains depressed; complains of AH; withdrawal waning (CIWA 0,2,0,2) 08/06 Patient reports he is feeling a little better than yesterday. Last night he did Bang his head on the wall 1 time in frustration; took Zyprexa which said it helped calmed down his anxiety/agitation but was also rather sedating. Said he would like to keep it just as a p.r.n.. Patient discussed how on Ozempic he had resolved his diabetes reflected in his current hemoglobin A1c. Patient has been off metformin and would like to get back on regular dose of a 1000 b.i.d. as his blood sugar was mildly elevated today with a 1 time POC. -increase metformin to 1000 q.h.s. and 500 daily; will likely go back to 1000 b.i.d. but will check POC 1st -the added POC -Zoloft increase to 75 mg 08/08: Risperdal 1 mg bid for auditory perceptual alterations 08/10: Continue tx. Plan Admit, CV, 15 minute checks Increased metformin ER to 1000 mg q.h.s.; adding daytime metformin 500 mg; used to be on 1000 b.i.d. Adding POC Increased Zoloft to 75 mg Collateral Contacts Olanzapine prn Lorazepam detox/CIWA Encourage milieu involvement as detox progresses Discharge planning Reason for continued inpatient stay Substantial Risk for: rapid decompensation Time Spent With Patient Time: Total time managing care of this patient today ____ minutes.
[2024-08-10] MEDS: metFORMIN HCl ER 500 MG TAB.ER.24H 1000 MG PO (18:15)
[2024-08-10 20:00] VITALS: BP 115/68; PULSE 82; RESP 16; TEMP 37.2; O2SAT 96
[2024-08-10 21:32] LABS: Glucose, Whole Blood 214 mg/dL (60-115)
[2024-08-11 08:00] VITALS: BP 113/73; PULSE 74; RESP 16; TEMP 36.9; O2SAT 98
[2024-08-11 08:00] LABS: Glucose, Whole Blood 257 mg/dL (60-115)
[2024-08-11] MEDS: Insulin Lispro 100 UNIT/ML 3 ML VIAL SUBCUT ×2 (08:38→21:02)
[2024-08-11 08:39] VITALS: BP 113/73
[2024-08-11] MEDS: Naltrexone HCl 50 MG TABLET PO (08:39)
[2024-08-11] MEDS: lisinopriL 2.5 MG TABLET PO (08:39)
[2024-08-11] MEDS: Multivitamin TABLET 1 TAB PO (08:39)
[2024-08-11] MEDS: Thiamine HCL 100 MG TABLET PO (08:39)
[2024-08-11] MEDS: Sertraline HCL 25 MG TABLET 75 MG PO (08:39)
[2024-08-11] MEDS: metFORMIN HCl ER 500 MG TAB.ER.24H PO (08:39)
[2024-08-11] MEDS: Topiramate 25 MG TABLET PO ×2 (08:40→21:03)
[2024-08-11] MEDS: risperiDONE 1 MG TABLET PO ×2 (08:40→21:04)
[2024-08-11] MEDS: Folic Acid 1 MG TABLET PO (08:40)
--- NOTE | 2024-08-11 11:04 | HO.PSYCHPN ---
Subjective Subjective Date of Service: 08/11/24 Reason For Visit: PTSD, Generalized anxiety disorder Subjective Notes: Conditional Voluntary Healthcare Proxy: No Guardianship: No Medical Problems Affecting Mental Status: No Interim History: Accepted to [facility]. Anxious, Apprehesive. That is far away. Full med review. Pt is grateful team was able to help him continue his treatment. Plans DC 08/12. Medication Compliance: Yes Side effects from medications: No Attending Groups: No Review of Systems Acute medical concerns: No Review of Systems Review of Systems Denies Mental Status Exam Mental Status Exam Patient Appearance: Appropriate Patient Orientation: Person, Place, Time and Situation Level of Consciousness: Alert Patient Behavior: Talkative and Good Eye Contact Mood Description: Depressed Affect Description: Flat Patient Cognition Impaired: No Ability to Follow Directions: Good Speech Pattern: Spontaneous Speech Memory Description: Intact Hallucinations: Auditory Perceptual Disturbances: Depersonalization and Derealization Thought Process: Rumination Thought Content: positive for Circumstantial, positive for Perseveration and positive for Suicidal Ideation (denies) Depressive Symptoms: Thoughts of /Suicide (denies) Judgement: Fair Diagnostics Vital Signs (24Hr): Vital Signs - 24 hr 08/10/24 20:00 08/11/24 08:00 08/11/24 08:39 Temperature 98.9 F 98.4 F Pulse Rate 82 74 Respiratory Rate 16 16 Blood Pressure 115/68 113/73 113/73 Pulse Oximetry 96 98 Oxygen Delivery Method Room Air Room Air BMI result Body Mass Index 34.1 Labs 08/09/24 08:22 Labs: Laboratory Results - last 48 hr 08/09/24 08/10/24 08/10/24 20:05 07:44 21:28 POC Glucose 243 H 247 H 214 H 08/11/24 07:53 POC Glucose 257 H Medications Medications Current Medications Acetaminophen (Acetaminophen 325 Mg Tablet) 650 mg PO Q6H PRN PRN Reason: Headache/Pain, Scale 1-10 Last Admin: 08/06/24 16:41 Dose: 650 mg Al Hydroxide/Mg Hydroxide (Magnesium Hydrox/Alum Hydrox 30 Ml Oral.Susp) 30 ml PO Q6H PRN PRN Reason: Heartburn/Nausea Dextrose (Dextrose 50 % 25 Gm/50 Ml Syringe) 25 gm IVPUSH Q15M PRN; Protocol PRN Reason: per Hypoglycemia Standing Ord. Folic Acid (Folic Acid 1 Mg Tablet) 1 mg PO DAILY [place] Last Admin: 08/11/24 08:40 Dose: 1 mg Glucose (Glucose Gel 15 Gm Gel..Gram.) 15 gm PO Q15M PRN; Protocol PRN Reason: per Hypoglycemia Standing Ord. Hydroxyzine HCl (Hydroxyzine Hcl 25 Mg Tablet) 25 mg PO Q6H PRN PRN Reason: mild anxiety Last Admin: 08/09/24 21:07 Dose: 25 mg Insulin Human Lispro (Insulin Lispro 100 Unit/Ml 3 Ml Vial) 0 unit SUBCUT BID [facility]; Protocol Last Admin: 08/11/24 08:38 Dose: 6 unit Lisinopril (Lisinopril 2.5 Mg Tablet) 2.5 mg PO DAILY [facility]; Protocol Last Admin: 08/11/24 08:39 Dose: 2.5 mg Magnesium Hydroxide (Milk Of Magnesia 30 Ml Oral.Susp) 30 ml PO DAILY PRN PRN Reason: Constipation Metformin HCl (Metformin Hcl Er 500 Mg Tab.Er.24h) 1,000 mg PO DAILY@1800 [facility] Last Admin: 08/10/24 18:15 Dose: 1,000 mg Metformin HCl (Metformin Hcl Er 500 Mg Tab.Er.24h) 500 mg PO DAILY [facility] Last Admin: 08/11/24 08:39 Dose: 500 mg Multivitamins/Vitamin C (Multivitamin Tablet) 1 tab PO DAILY [facility] Last Admin: 08/11/24 08:39 Dose: 1 tab Naltrexone HCl (Naltrexone Hcl 50 Mg Tablet) 50 mg PO DAILY [facility] Last Admin: 08/11/24 08:39 Dose: 50 mg Nicotine (Nicotine 14 Mg Patch.Td24) 14 mg TRANSDERMA DAILY PRN PRN Reason: smoking cessation Last Admin: 08/09/24 08:41 Dose: 14 mg Nicotine Polacrilex (Nicotine Polacrilex 2 Mg Gum) 2 mg BUCCAL Q2H PRN PRN Reason: Nicotine Cravings Last Admin: 08/09/24 17:03 Dose: 2 mg Olanzapine (Olanzapine 5 Mg Tablet) 5 mg PO Q4H PRN PRN Reason: psychosis, agitation Last Admin: 08/06/24 16:41 Dose: 5 mg Risperidone (Risperidone 1 Mg Tablet) 1 mg PO BID [facility] Last Admin: 08/11/24 08:40 Dose: 1 mg Sertraline HCl (Sertraline Hcl 25 Mg Tablet) 75 mg PO DAILY [facility] Last Admin: 08/11/24 08:39 Dose: 75 mg Thiamine HCl (Thiamine Hcl 100 Mg Tablet) 100 mg PO DAILY [facility] Last Admin: 08/11/24 08:39 Dose: 100 mg Topiramate (Topiramate 25 Mg Tablet) 25 mg PO BID [facility] Last Admin: 08/11/24 08:40 Dose: 25 mg Trazodone HCl (Trazodone Hcl 50 Mg Tablet) 50 mg PO BEDTIME MRX1 PRN PRN Reason: Insomnia Last Admin: 08/09/24 21:07 Dose: 50 mg Allergies Allergies Allergy/AdvReac Type Severity Reaction Status Date / Time fish derived (fish) Allergy Difficulty Verified 08/01/24 20:58 Breathing gabapentin Allergy Difficulty Verified 08/01/24 20:58 Breathing shellfish derived (shellfish) Allergy Difficulty Verified 08/01/24 20:58 Breathing Assessment & Plan Assessment & Plan (1) PTSD (post-traumatic stress disorder): Status: Acute Code(s): F43.10 - Post-traumatic stress disorder, unspecified (2) Recurrent major depression: Status: Acute Code(s): F33.9 - Major depressive disorder, recurrent, unspecified (3) Alcohol use disorder: Status: Acute Code(s): F10.90 - Alcohol use, unspecified, uncomplicated (4) Polysubstance use disorder: Status: Acute Code(s): F19.90 - Other psychoactive substance use, unspecified, uncomplicated Plan HPI: 49 yo male, transfer from [facility] for treatment of polysubstance use, depression, SI, homelessness. Reports he was working and had an apartment, however, his apartment was taken over at [employer], becoming a hub for substance distribution and crime. His landlord learned of this and is in process of eviction. As a result pt has attempted suicide three times this week by OD of crack, clonidine and lying on the train tracks waiting to be hit by an oncoming train. Reports decline for approximately 5 weeks. Has had 9 months of sobriety until June 2024. Recently resumed alcohol. AA peers took pt for help prior to admit. Today, detox is rough, pt hearing voices-using olanzapine, lorazepam. Brief meeting as he is sedate and wanting to rest Hospital course: remains depressed; complains of AH; withdrawal waning (CIWA 0,2,0,2) 6/14 Patient reports he is feeling a little better than yesterday. Last night he did Bang his head on the wall 1 time in frustration; took Zyprexa which said it helped calmed down his anxiety/agitation but was also rather sedating. Said he would like to keep it just as a p.r.n.. Patient discussed how on Ozempic he had resolved his diabetes reflected in his current hemoglobin A1c. Patient has been off metformin and would like to get back on regular dose of a 1000 b.i.d. as his blood sugar was mildly elevated today with a 1 time POC. -increase metformin to 1000 q.h.s. and 500 daily; will likely go back to 1000 b.i.d. but will check POC 1st -the added POC -Zoloft increase to 75 mg 08/08: Risperdal 1 mg bid for auditory perceptual alterations 08/09: Continue tx 08/11: DC 08/12 to [facility] Plan Admit, CV, 15 minute checks Increased metformin ER to 1000 mg q.h.s.; adding daytime metformin 500 mg; used to be on 1000 b.i.d. Adding POC Increased Zoloft to 75 mg Collateral Contacts Olanzapine prn Lorazepam detox/CIWA Encourage milieu involvement as detox progresses Discharge planning Patient educated on: medication risk/benefits and therapeutic strategies Informed Consent: understands Reason for continued inpatient stay Substantial Risk for: stable for discharge Time Spent With Patient Time: Total time managing care of this patient today ____ minutes.
[2024-08-11] MEDS: metFORMIN HCl ER 500 MG TAB.ER.24H 1000 MG PO (17:20)
[2024-08-11 20:00] VITALS: BP 105/60; PULSE 80; RESP 18; TEMP 36.6; O2SAT 96
[2024-08-11 20:54] LABS: Glucose, Whole Blood 187 mg/dL (60-115)
[2024-08-11] MEDS: traZODone HCL 50 MG TABLET PO (23:40)
[2024-08-12 08:00] VITALS: BP 120/87; PULSE 88; RESP 15; TEMP 36.9; O2SAT 96
[2024-08-12 08:23] LABS: Glucose, Whole Blood 253 mg/dL (60-115)
[2024-08-12] MEDS: Insulin Lispro 100 UNIT/ML 3 ML VIAL SUBCUT (08:49)
[2024-08-12 08:50] VITALS: BP 120/87
[2024-08-12] MEDS: lisinopriL 2.5 MG TABLET PO (08:50)
[2024-08-12] MEDS: Naltrexone HCl 50 MG TABLET PO (08:50)
[2024-08-12] MEDS: Multivitamin TABLET 1 TAB PO (08:51)
[2024-08-12] MEDS: risperiDONE 1 MG TABLET PO (08:51)
[2024-08-12] MEDS: Sertraline HCL 100 MG TABLET PO (08:51)
[2024-08-12] MEDS: Topiramate 25 MG TABLET PO (08:51)
[2024-08-12] MEDS: metFORMIN HCl ER 500 MG TAB.ER.24H PO (08:51)
[2024-08-12] MEDS: Folic Acid 1 MG TABLET PO (08:51)
[2024-08-12] MEDS: Thiamine HCL 100 MG TABLET PO (08:51)
--- NOTE | 2024-08-12 15:16 | PM.PSYDC ---
DS: Providers Provider Date of admission: 08/01/24 19:20 Primary care physician: VIOLET Lance Consults: 08/01/24 20:26 Consult to Hospitalist Routine Comment: Consulting Provider: [facility] Reason For Exam: medical H&P 08/01/24 23:29 Addiction Medicine Provider Routine Consulting Provider: Addiction Covering Reason for consultation: pt daily drinker Has provider been notified: No DS: Diagnosis Discharge Diagnosis (1) PTSD (post-traumatic stress disorder): Status: Acute (2) Recurrent major depression: Status: Acute (3) Alcohol use disorder: Status: Acute (4) Polysubstance use disorder: Status: Acute DS: Medications Discharge Medications Home Medications: Previous Rx's ?Medication ?Instructions ?Recorded acetaminophen 325 mg tablet 650 mg (2 x 325 mg) PO Q6H PRN 08/11/24 Headache/Pain, Scale 1-10 #0 tabs folic acid 1 mg tablet 1 mg PO DAILY #30 tabs 08/11/24 hydroxyzine HCl 25 mg tablet 25 mg PO Q6H PRN mild anxiety #60 08/11/24 tabs insulin lispro 100 unit/mL See Protocol subcut BID #3 mL 08/11/24 subcutaneous solution (Admelog U-100 Insulin lispro) lisinopril 2.5 mg tablet 2.5 mg PO DAILY #30 tabs 08/11/24 metformin 500 mg tablet,extended 1,000 mg (2 x 500 mg) PO 08/11/24 release 24 hr DAILY@1800 #60 tabs metformin 500 mg tablet,extended 500 mg PO DAILY #30 tabs 08/11/24 release 24 hr multivitamin (Daily-Tosha tablet) 1 tab PO DAILY #30 tabs 08/11/24 naloxone 4 mg/actuation nasal 4 mg intranasal Q2M PRN opioid 08/11/24 spray (Narcan) overdose #2 ea naltrexone 50 mg tablet 50 mg PO DAILY #30 tabs 08/11/24 nicotine (polacrilex) 2 mg gum 2 mg buccal Q2H PRN Nicotine 08/11/24 Cravings #100 ea nicotine 14 mg/24 hr daily 14 mg transdermal DAILY PRN 08/11/24 transdermal patch smoking cessation #30 ea risperidone 1 mg tablet 1 mg PO BID #60 tabs 08/11/24 sertraline 100 mg tablet 100 mg PO DAILY #30 tabs 08/11/24 thiamine mononitrate (vit B1) 100 100 mg PO DAILY #30 tabs 08/11/24 mg tablet topiramate 25 mg tablet 25 mg PO BID #60 tabs 08/11/24 trazodone 50 mg tablet 50 mg PO BEDTIME MRX1 PRN Insomnia 08/11/24 #60 tabs Data Data Completed and Pending Completed studies during hospitalization [Text1]: 08/07/24 08/07/24 08/08/24 08:22 21:29 12:43 Sodium Potassium Chloride Carbon Dioxide Anion Gap BUN Creatinine Estim Creat Clear Calc Estimated GFR POC Glucose 230 H 228 H 267 H Random Glucose Calcium 08/08/24 08/09/24 08/09/24 20:25 08:16 08:22 Sodium 139 Potassium 4.5 Chloride 101 Carbon Dioxide 30 H Anion Gap 13 BUN 18 H Creatinine 0.72 Estim Creat Clear Calc 182.6 Estimated GFR > 60 POC Glucose 261 H 205 H Random Glucose 215 H Calcium 9.6 08/09/24 08/10/24 08/10/24 20:05 07:44 21:28 Sodium Potassium Chloride Carbon Dioxide Anion Gap BUN Creatinine Estim Creat Clear Calc Estimated GFR POC Glucose 243 H 247 H 214 H Random Glucose Calcium 08/11/24 08/11/24 08/12/24 07:53 20:19 08:20 Sodium Potassium Chloride Carbon Dioxide Anion Gap BUN Creatinine Estim Creat Clear Calc Estimated GFR POC Glucose 257 H 187 H 253 H Random Glucose Calcium DS: Summary Time Spent with Patient Time attestation: Total time managing care of this patient today ____ minutes. Discharge Plan Discharge Anticipated Discharge Date/Time: 08/12/24 12:00 Patient Disposition: Xfer Inpatient Rehab Fac Discharge Diagnosis: PTSD Recurrent Major Depression Alcohol Use Disorder Polysubstance Use Disorder HTN DM Referrals: [facility] [Other] - 1 Week Referral Note: Referral to [facility] program for substance use treatment [facility] [Other] - 1 Week Referral Note: Patient referred to [facility] for dual diagnosis treatment [facility] [Other] - 1 Week Referral Note: Patient referred to [facility] for dual diagnosis Treatment Patient should follow-up weekly to stay active on wait list [facility] [Other] - 08/12/24 1:00 pm Referral Note: Patient accepted to [facility] program for substance use treatment [facility] [Other] - 1 Week Referral Note: Referral to [facility] program for substance use treatment program Britany Main FNP [Primary Care Provider] - 1 Week Discharge Medications: New multivitamin [Daily-Tosha] Tablet 1 tab PO DAILY Qty: 30 0RF acetaminophen 325 mg Tablet 650 mg PO Q6H PRN (Reason: Headache/Pain, Scale 1-10) Qty: 0 0RF nicotine 14 mg/24 hr Patch 24 Hour 14 mg transdermal DAILY PRN (Reason: smoking cessation) Qty: 30 0RF trazodone 50 mg Tablet 50 mg PO BEDTIME MRX1 PRN (Reason: Insomnia) Qty: 60 0RF nicotine (polacrilex) 2 mg Gum 2 mg buccal Q2H PRN (Reason: Nicotine Cravings) Qty: 100 0RF naltrexone 50 mg Tablet 50 mg PO DAILY Qty: 30 0RF sertraline 100 mg Tablet 100 mg PO DAILY Qty: 30 0RF topiramate 25 mg Tablet 25 mg PO BID Qty: 60 0RF folic acid 1 mg Tablet 1 mg PO DAILY Qty: 30 0RF hydroxyzine HCl 25 mg Tablet 25 mg PO Q6H PRN (Reason: mild anxiety) Qty: 60 0RF insulin lispro [Admelog U-100 Insulin lispro] 100 unit/mL Solution See Protocol subcut BID Qty: 3 5RF Protocol: Insulin Correction Scale Less than or equal to 110 ---- Give (units): 0 111 to 150 Give (units): 0 151 to 200 Give (units): 2 201 to 250 Give (units): 4 251 to 300 Give (units): 6 301 to 350 Give (units): 8 Greater than 350 Give (units): 10 Call MD if Blood Glucose > : 350 metformin 500 mg Tablet Extended Release 24 Hr 1,000 mg PO DAILY@1800 Qty: 60 0RF metformin 500 mg Tablet Extended Release 24 Hr 500 mg PO DAILY Qty: 30 0RF risperidone 1 mg Tablet 1 mg PO BID Qty: 60 0RF lisinopril 2.5 mg Tablet 2.5 mg PO DAILY Qty: 30 0RF Protocol: Hold for SBP< HOLD for SBP < : 90 thiamine mononitrate (vit B1) 100 mg Tablet 100 mg PO DAILY Qty: 30 0RF naloxone [Narcan] 4 mg/actuation spray,non-aerosol 4 mg intranasal Q2M PRN (Reason: opioid overdose) Qty: 2 0RF Rx Instructions: spray 1 dose into ONE nostril; alternate nostrils w each dose until help arrives Discharge Orders: Discharge Order (Routine); Ordered 08/12/24 Ordered By: Genny Louise Diet: Diabetic diet Activity on Discharge: As tolerated Stand Alone Forms: Patient Portal Discharge page, Community Support Print Language: Mohawk Care Plan Goals: Abstinence from substances Mood and Behavioral Stabilization Health Concerns: Abstinence from substances Mood and Behavioral Stabilizaiton Plan of Treatment: Attend scheduled appointments Take medications as directed Continue residential treatment with [facility] Assessment: Denies SI,HI,AH, VH No sx of acute harika or psychosis Plans to transfer for ongoing residential treatment. Discharge Date/Time: 08/12/24 11:29
== END 2024-08-12 11:29 | DRG 751 ==
PROVIDERS: Nurse Practitioner Family; Social Worker; Admitting Provider Psychiatry & Neurology Psychiatry; PCP Nurse Practitioner Family; Visit Provider Clinical Nurse Specialist Psychiatric/Mental Health, Adult
DX: F33.9 Major depressive disorder, recurrent, unspecified (principal); Z59.02 Unsheltered homelessness; F17.210 Nicotine dependence, cigarettes, uncomplicated; Z71.6 Tobacco abuse counseling; Z91.51 Personal history of suicidal behavior; I10 Essential (primary) hypertension; E11.9 Type 2 diabetes mellitus without complications; F14.10 Cocaine abuse, uncomplicated; F43.10 Post-traumatic stress disorder, unspecified; F10.90 Alcohol use, unspecified, uncomplicated; Z79.4 Long term (current) use of insulin; Z79.84 Long term (current) use of oral hypoglycemic drugs; Z79.899 Other long term (current) drug therapy
CPT/HCPCS: 36415; 80048; 80053; 80061; 82607; 82746; 82947; 83036; 84443

== ENCOUNTER → 2024-08-01 19:20 | Outpatient (BNV) | payer OTHER, SELFPAY | PROVIDERS: Admitting Provider Psychiatry & Neurology Psychiatry; PCP Nurse Practitioner Family; Visit Provider Clinical Nurse Specialist Psychiatric/Mental Health, Adult | DX: F33.2 Major depressive disorder, recurrent severe without psychotic features (principal); F43.11 Post-traumatic stress disorder, acute; F10.90 Alcohol use, unspecified, uncomplicated; F19.90 Other psychoactive substance use, unspecified, uncomplicated; F14.10 Cocaine abuse, uncomplicated | CPT/HCPCS: 90792; 99232; 99499 ==

== ENCOUNTER → 2024-08-01 19:20 | Outpatient (BNV) | payer OTHER, SELFPAY | PROVIDERS: Admitting Provider Psychiatry & Neurology Psychiatry; PCP Nurse Practitioner Family; Visit Provider Nurse Practitioner Family | DX: E11.9 Type 2 diabetes mellitus without complications (principal); I15.2 Hypertension secondary to endocrine disorders | CPT/HCPCS: 99222 ==